=== PATIENT | male | born 1930 | race Caucasian/White ===

== ENCOUNTER 2016-08-06 22:31 | Inpatient (IN) | payer MEDICARE ==
[~2016-08-06] VITALS: Ht 182.9 cm; Wt 105.4 kg
[2016-08-06 22:38] VITALS: BP 153/70; PULSE 82; RESP 28; O2SAT 99
--- NOTE | 2016-08-06 22:42 | ED.REPORT ---
HPI-General Illness Date of Service Aug 06, 2016 ED Provider: Orlando Arce MD Patient is an 86 year old male with a history of hypertension, coronary artery disease, and congestive heart failure who presents to the ED with increasing redness and swelling of his right leg that began 2 days ago. The patient states that his leg started swelling more than usual several days ago, causing him to double his dose of furosemide and spironolactone. Tonight the patient complained to his daughter that his right big toe causing him pain. She noticed that his leg was swollen and red. His daughter states that the patient was scratched by her cat several days ago and she is concerned that this may have caused his infection. However, he also has an ingrown toenail of his right great toe. The patient was given 2x Ibuprofen prior to arrival. He developed nausea and vomiting just prior to arrival. He admits to decreased PO intake over the past few days but denies abdominal pain, fever, chest pain, or shortness of breath. He denies a history of diabetes mellitus. Nursing Notes Stated Complaint: VOMITING Chief Complaint: General Complaint Nursing Notes Reviewed: Yes Allergies: Coded Allergies: No Known Allergies (Unverified , 08/06/16) General Time Seen by MD: 22:36 Chief Complaint Other (extremity pain and swelling) Hx Obtained From: Patient Arrived By: Walk-in Sudden in Onset?: No Onset Occurred: 2 days ago Symptom Duration: Since onset Location: : Leg right Quality: Painful Severity: Current: Moderate Severity: Maximum: Severe Recent Healthcare: No recent doctor visit, No recent hospitalization Similar Sx Previous: No Past Medical History Past Medical History heart attack Reports: Congestive heart failure, Coronary artery disease, Hypertension, Denies: Diabetes mellitus Past Surgical History TKA Reports: Appendectomy, Tonsillectomy Reports: Back/neck surgery Smoking History Former Smoker Social History Alcohol Use: Denies alcohol use Other Social History: Good social support, Local resident Ambulatory Status Independent Review of Systems Full Review of Systems Constitutional: Denies: Chills, Fever Respiratory: Denies: Shortness of breath Cardiovascular: Denies: Chest pain GI: Reports: Nausea, Vomiting, Denies: Abdominal pain Musculoskeletal: Reports: Extremity pain, Extremity swelling Complete sys rev & neg: except as marked. Physical Exam Vital Signs Vital Signs Date Time Temp Pulse Resp B/P Pulse Ox O2 Delivery O2 Flow Rate FiO2 08/06/16 23:57 79 25 121/54 90 Room Air 08/06/16 22:38 37.5 82 28 153/70 99 Room Air Initial VS: Reviewed Skin: Warm, Dry, No cyanosis Neurologic: Alert, Oriented, Nonfocal Psychiatric: Mood/affect normal, Behavior normal, Normal thought content General/Constitutional: Awake, Alert Appearance / Presentation: Positive: Obese Head / Eyes: Normocephalic, PERRL, EOMI ENT: Airway patent Mouth: Positive: Mucous membranes dry Respiratory / Chest: Breath sounds NL, Breath sounds = bilat, No respiratory distress, No rales, No rhonchi, No wheezing Cardiovascular: Heart rate NL, Regular rhythm, Heart sounds NL, No gallop, No murmurs, No rubs Abdomen: Soft, Non-tender, No guarding, No rebound Upper Extremities Upper Extremity / MS: No swelling, No edema Lower Extremity / Pelvis / MS: No deformity Right leg is swollen and red, with pitting edema. Various old scars, with skin adherent to the underlayers. Ankle / Foot: No deformity Ingrown right toe nail, with necrotic tissue. Various black escobar on his right foot. Interpretation & Diagnostics Lab Results Interpretation Result Diagram: 08/06/16230108/06/162301 Test 08/06/16 23:02 White Blood Count 6.2th/mm3 (3.8-10.1) Red Blood Count 3.38mil/mm3 (4.40-5.80) Hemoglobin 10.7g/dL (13.8-17.2) Hematocrit 32.5% (41.0-50.0) Mean Corpuscular Volume 96.2fL (81-100) Mean Corpuscular Hemoglobin 31.7pg (27.0-35.0) Mean Corpuscular Hemoglobin Concent 32.9% (32.0-37.0) Red Cell Distribution Width 14.8% (12.3-15.4) Platelet Count 141bil/L (150-400) Neutrophils (%) (Auto) 88.6% (40-74) Lymphocytes (%) (Auto) 9.1% (14-46) Monocytes (%) (Auto) 1.6% (4-12) Eosinophils (%) (Auto) 0.7% (0-5) Basophils (%) (Auto) 0% (0-3) Erythrocyte Sedimentation Rate 19mm/hr (0-30) Prothrombin Time 18.1sec (8.1-12.5) Prothromb Time International Ratio 1.67ratio Activated Partial Thromboplast Time 30.4sec (22.8-33.0) Sodium Level 138mEq/L (134-144) Potassium Level 4.3mEq/L (3.5-5.2) Chloride Level 100mEq/L (97-108) Carbon Dioxide Level 22mmol/L (18-29) Blood Urea Nitrogen 33mg/dL (8-27) Creatinine 1.84mg/dL (0.76-1.27) Estimat Glomerular Filtration Rate 37mL/min (>59) Glucose Level 117mg/dL (60-99) Lactic Acid Level 1.7mmol/L (0.4-2.0) Calcium Level 9.9mg/dL (8.5-10.1) Phosphorus Level 3.3mg/dL (2.5-4.9) Magnesium Level 2.1mg/dL (1.6-2.6) Total Bilirubin 1.3mg/dL (0.0-1.2) Aspartate Amino Transf (AST/SGOT) 20U/L (0-50) Alanine Aminotransferase (ALT/SGPT) 11U/L (0-44) Alkaline Phosphatase 138U/L (25-160) Troponin T 0.055ug/L (0.0-0.011) Pro-B-Type Natriuretic Peptide 3664pg/mL (0-486) Total Protein 7.9g/dL (6.4-8.4) Albumin 4.1g/dL (3.4-5.0) Lipase 26U/L (13-60) Procalcitonin 0.07ng/mL (0.00-0.08) ECG Interpretation ECG Interpretation: Sinus rhythm, Rate 81 Right bundle branch block but no acute changes Time: 23:10 Interpreted by: ED physician X-Ray Chest Interpretation Chest Xray Interpretation: Impression: Cardiomegaly but no signs of CHF. View: Portable Interpretation / Wet Read by: Wet read ED physician Re-Eval/Medical Decision Med Decision/Clinical Course 6-year-old with peripheral edema and presumptive congestive heart failure, presents with increasing swelling in both legs and distinct redness in the right leg indicating cellulitis. He has no white count but differs between his legs is quite remarkable. He is been doubling his Lasix without much effect and still has fairly swollen tense tender legs. His incidental back pain being addressed with Dilaudid. He has no pain medicine at home. He has an incidental elevation of his troponin in the setting of azotemia. Age of this renal dysfunction is unclear, as we have no old records on him. The elevation of creatinine is probably not sufficient to explain the troponin elevation completely. He is admitted as a rule out protocol for trending of his troponin and evaluation of his heart further. Consider echo in the morning if this is not been accomplished elsewhere in the recent past. He was begun with soft tissue sepsis protocol drugs which are probably excessive. He was given meropenem, vancomycin, and clindamycin. This infection will probably respond ultimately clindamycin alone. Cultures of the blood are pending. Doubt MRSA. He is transported in stable condition. Time of Eval: 00:32 Re-Evaluation/Progress Note: Rechecked the patient. Discussed the results of his labs, chest x-ray, and EKG. Informed the patient that he will be admitted to the hospital for further care. Patient understands and agrees with this plan. All questions were addressed. Consultation : Referral / Consult Name: Thomas Nelson MD Consulted With: Hospitalist Call Returned at: 00:43 [employer] Department Chair: Will see patient, Agrees with eval, Agrees with plan, Accepts admit Note: Spoke with Dr. Nelson, hospitalist, who agrees to accept admit. Counseled Regarding: Diagnosis, Lab results, Need for admission Discharge & Departure Primary Impression: Cellulitis of right lower extremity Additional Impressions: CHF (congestive heart failure) Congestive heart failure type: unspecified congestive heart failure type Congestive heart failure chronicity: unspecified congestive heart failure chronicity Qualified Code: I50.9 - Heart failure, unspecified Elevated troponin Disposition: ADMITTED TO HOSPITAL Discharge Condition All VS Reviewed: Yes Condition: Stable Scribe Attestation Portions of this note were transcribed by Lana Norris. I, Dr. Arce personally performed the history, physical exam and medical decision-making; I reviewed and confirmed the accuracy of the information in the transcribed note. Signed by: Estefany Ho, 08/07/2016 0045 Orlando Arce MD Aug 06, 2016 22:42 Lana Norris Aug 06, 2016 22:53
[2016-08-06] MEDS ORDERED: Ondansetron 2 mg/mL 2 mL Inj IVPUSH ONE (22:50)
[2016-08-06] MEDS ORDERED: Clindamycin Inj 900 MG in IV Premix 1 EACH IV ONE (22:50)
[2016-08-06] MEDS ORDERED: Meropenem Inj 1,000 MG in 0.9% Sodium Chloride 100 ML IV ONE (22:50)
[2016-08-06] MEDS ORDERED: Vancomycin Dose per Pharmacist XX ONE (22:50)
[2016-08-06] MEDS ORDERED: 0.9% Sodium Chloride 1,000 ML IV ONE (22:50)
[2016-08-06] MEDS ORDERED: Vancomycin Inj 2,000 MG in 0.9% Sodium Chloride 500 ML IV ONE (23:05)
[2016-08-06] MEDS ORDERED: HYDROmorphone 0.5 mg/0.5 mL iSecure Syringe IVPUSH ONE (23:10)
[2016-08-06 23:37] LABS: BASOPHILS % (AUTO) 0 % (0-3); EOSINOPHILS % (AUTO) 0.7 % (0-5); MONOCYTES % (AUTO) 1.6 % (4-12); Mean Corpuscular Hemoglobin 31.7 pg (27.0-35.0); Mean Corpuscular Volume 96.2 fL (81-100); NEUTROPHILS % (AUTO) 88.6 % (40-74); Platelet Count 141 bil/L (150-400)
[2016-08-06 23:56] LABS: INR 1.67 ratio
[2016-08-06 23:57] VITALS: BP 121/54; PULSE 79; RESP 25; O2SAT 90
[2016-08-07] VITALS (11 sets, daily range): BP systolic 85–127; BP diastolic 49–70; PULSE 52–76; RESP 16–23; O2SAT 96–99
[2016-08-07 00:05] LABS: Magnesium 2.1 mg/dL (1.6-2.6); Phosphorus 3.3 mg/dL (2.5-4.9)
[2016-08-07 00:11] LABS: TROPONIN T 0.055 ug/L (0.0-0.011)
[2016-08-07 00:23] LABS: ERYTHROCYTE SEDIMENTATION RATE 19 mm/hr (0-30)
[2016-08-07] MEDS ORDERED: HYDROmorphone 0.5 mg/0.5 mL iSecure Syringe IVPUSH ONE (00:50)
[2016-08-07] MEDS ORDERED: 0.9% Sodium Chloride 1,000 ML IV SCH ×2 (01:20)
[2016-08-07] MEDS ORDERED: Alum-Mag Hydrox-Simeth 30 mL Suspension PO PRN ×2 (01:20)
[2016-08-07] MEDS ORDERED: Polyethylene Glycol (PEG) 17 Gm Powder PO PRN (01:20)
[2016-08-07] MEDS ORDERED: Ondansetron 2 mg/mL 2 mL Inj IVPUSH PRN ×2 (01:20)
--- NOTE | 2016-08-07 01:48 | PCM.HPMED ---
Subjective Date of Service Aug 07, 2016 Primary Provider: Admitting Physician: Thomas Nelson MD Primary Care Physician: Nopjh Attending Physician: Thomas Nelson MD Admit Status: From the Emergency Department, [facility] Telemetry Chief Complaint: Right leg pain and swelling History of Present Illness: Mr. Parrish Benitez is an 86 year old male with a history of chronic chronic afib on warfarin, hypertension, coronary artery disease, and congestive heart failure who presents to the ED with increasing redness and swelling of his right leg that began prior to arrival. The patient reports that his leg's swelling has been worse than usual several days ago, causing him to double his dose of furosemide and spironolactone. Tonight the patient complained to his daughter that his right big toe and foot are causing him pain. She noticed that his right leg was swollen and red. His daughter states that the patient was scratched by her cat a week ago and she is concerned that this may have caused his infection. However, he also has an ingrown toenail of his right great toe. She gave him a dose of Ibuprofen prior to arrival, which made him very nauseous and vomited once. He admits to increasing shortness of breath, worsening dry cough, chills, urinary frequency, and decreased PO intake over the past few days. He denies abdominal pain, fever, chest pain, or paroxysmal nocturnal dyspnea. He sleeps with one pillow everyday and does not need to use O2. He denies a history of diabetes mellitus and has never had similar symptoms in the past. His daughter reports the last time he was in the hospital was probably 7 years ago for a knee surgery. No recent cardiac workups, but he saw Dr. Taveras in 05/2016 and plans to have an event monitor done soon. In the ED, patient had temp of 37.5, pulse 82, RR 28, BP 153/70, Pulse ox 99% at RA. WBC normal but elevated Neutrophils of 88. CMP normal except for BUN 33 and Cr. 1.84. Lactic acid 1.7 and procalcitonin 0.07. Pro-BNP 3664 and elevated trop of 0.055. INR 1.67. EKG showed sinus rhythm with rate of 81 and RBBB but no acute changes. CXR indicated cardiomegaly but no other sign of CHF. Review of Systems: Comprehensive review of systems conducted and was negative except for the pertinent positives listed in history of present illness above. Allergies Coded Allergies: No Known Allergies (Unverified , 08/06/16) Home Medications Per Next Gen Medication Name Directions doxazosin 8 mg tablet take 1 tablet by oral route every day fluoxetine 20 mg capsule take 1 capsule by oral route 2 times every day in the morning furosemide 40 mg tablet take 3 tablet by oral route 2 times every day furosemide 40 mg tablet take 2 tablet by oral route every morning with spironolactone lisinopril 40 mg tablet take 1 tablet by oral route every day spironolactone 25 mg tablet take 2 tablet by oral route every morning trospium 20 mg tablet take 1 tablet by oral route every day on an empty stomach warfarin 2 mg tablet take 1 tablet by oral route every day PMH RI in 2004. No stent placement. Reports: Congestive heart failure, Coronary artery disease, Hypertension, Afib. Denies: Diabetes mellitus Surgical History Reports: TKA, Appendectomy, Tonsillectomy, back/neck surgery Family History Both parents had cardiovascular disease and heart attacks. Social History Hx Alcohol Use: No ("Quit a couple years ago." Drank occasionally prior to that.) Hx Substance Use: No Smoking Status: Former Smoker (quit 45 years ago) Living Arrangement: with Family (with daughter) Additional Information Patient's daughter reports slow/shuffling gait at baseline, but he is quite independent and uses a walker occasionally. PCP is Dr. Mackay at [facility]. Cardiology is Dr. Taveras. . Exam Vital Signs Vital Sign - Last Date Time Temp Pulse Resp B/P Pulse Ox O2 Delivery O2 Flow Rate FiO2 08/06/16 23:57 79 25 121/54 90 Room Air 08/06/16 22:38 37.5 Intake and Output 08/06/16 08/06/16 08/07/16 Cumulative From/Thru 15:00 23:00 07:00 08/06/16 22:38 - 08/06/16 23:11 Intake Total 1000 ml 1000 ml Balance 1000 ml 1000 ml Intake IV Total 1000 ml 1000 ml Exam General: somnolent but opens eyes easily to verbal. Oriented X3, Cooperative, No Acute Distress. Head: Atraumatic. External ears normal. Eyes: PERRLA, EOMI. Anicteric sclerae. Conjunctiva are not injected Mouth: Mouth Normal, Mucous Membranes Moist/[place] Neck: Neck supple with full range of motion. No Thyromegaly. Small JVD noted. Chest & Lungs: Clear to auscultation bilaterally with no crackles, wheezes, or rhonchi. Normal respiratory effort without use of accessory muscles Cardiovascular: Regular Rate/Rhythm (sinus on the monitor), Normal S1, Normal S2, No Murmurs/Rubs/Gallops. Abdomen: Obese, Soft, Non-distended, Non-tender, No masses, Normoactive bowel tones. Left leg: mild pitting edema and brawny discoloration consistent with venous insufficiency. Otherwise normal exam. Right leg: moderate pitting edema from about 5 cm below the knee down to the foot with pedal edema. Erythema and warmth to touch in the same area. Tenderness to palpation throughout, especially in the right big toe. Ingrown right big toe nail, with necrotic tissue. No open lesion or wound noted. Neurological: Grossly Neurologically Intact, Cranial Nerves 2-12 Intact, Normal Speech (no slurring appreciated), Gait was not assessed at this time Psych: Normal mood and affect. Lab and Diagnostics Result Diagram: 08/06/16230108/06/162301 12-lead ECG Sinus rhythm, Rate 81 Right bundle branch block but no acute changes Cardiac Echo Impressions Per Next Gen: Echo (EF 0.55 (55%)) - 01/25/2016 Echo (EF 0.58 (58%)) - 07/2015 Gil MPI (Normal EF, Inferior Scar vs Gut Artifact) - 01/25/2016 Assessment & Plan 86 year old male with a history of chronic chronic afib on warfarin, hypertension, coronary artery disease, and congestive heart failure who presents to the ED with increasing redness and swelling of his right leg that began prior to arrival. 1. Acute cellulitis of the right lower extremity. Present on admission. Active. - Patient does not meet SIRS/Sepsis criteria. Normal lactic acid (1.7) and procalcitonin (0.07). Will continue to trend lactic acid. - Concerning about superimposed cat scratch disease and acute ingrown toenail of the big toe. - Patient received Meropenem+Vanco+Clindamycin in the ED. - Blood culture pending. - Given his elevated renal function, will start empiric treatment with Unasyn ( instead of Zosyn) and Doxycycline (for cat scratch disease and MRSA coverage). Unasyn dosing was discussed with pharmacy, who recommended 3g Q8H for his CrCl. - Consider ID consult for antibiotic guidances and duration of treatment. - Patient will likely need an incision and drainage of the right big toenail. - Judicious use of IVF given possible CHF exacerbation. IVF with NS at 80mls/ hr. - Continue to monitor vital signs. 2. Possible diastolic congestive heart failure exacerbation, acute. Present on admission. Active. - Patient reports increasing LE edema, SOB, and dry cough. No sputum production. Small JVD noted on exam. - Pro-BNP of 3664. - Last Echo was in 01/2016 per record. There is diastolic dysfunction with elevated filling pressure and the left atrium is severely dilated. EF 55%. There is moderate pulmonary hypertension, PASP 54mmHg. - Repeat Echo in the morning. - Will start Lasix 40mg IV BID in the morning. - Will need to monitor strict I/O and daily weight. - Resume home Spironolactone after med rec. Consider switching home Lisinopril to Losartan given chronic dry cough. 3. Elevated Tropnonin. Present on admission. Active. - Likely due to elevated renal function. - Normal EKG on admission. Monitor Telemetry. - Will continue to trend Trop and order EKG if pt becomes symptomatic. 4. Acute kidney injury. Present on admission. Active. - Unknown if there was history of chronic kidney dysfunction. No prior labs for comparison. - IVF as above. Consider D/C IVF once kidney function improves. - Avoid nephrotoxic drugs. - Continue to monitor renal function. 5. Chronic atrial fibrillation on chronic anticoagulation. Stable. - Normal sinus rhythm and rate on admission. - INR is subtherapeutic (1.67). Continue to monitor INR. - Patient was on Metoprolol before, but it was discontinued due to significant bradycardia. - Will continue Warfarin. Dosing per pharmacy. - Monitor Telemetry. - Follow up with cardiology as outpatient for Event Monitor. 6. Hypertension, chronic, stable. - Resume home Spironolactone and ACEi/ARBs after med rec - Continue to monitor. 7. History of CAD, presume stable. - Patient is not on ASA or statin. - Check lipid panel in the morning and consider adding a statin. 8. Chronic urinary retention, presume stable. - Will resume home Doxazosin after med rec. 9. Depression, chronic. - Resume home Fluoxetine after med rec. 10. Medication reconciliation. - Patient's daughter will bring in all his medications tomorrow. Med rec needs to be done by day team. CODE STATUS: DNR/DNI per the patient. - Acetaminophen and Dilaudid as needed for pain - Bowel regimen as needed - Antiemetic as needed Patient is admitted under inpatient status with expected length of stay greater than 2 midnights due to severity of presenting symptoms, risk of adverse event, and complexity of treatment plan. Pain Evaluation: Adequate Pain Control GI Prophylaxis: H2 luan VTE Prophylaxis: Theraputic Anticoag with Warfarin Resuscitation Status: DNR/DNI:Do Not Resuscitate/Intubate Attending Statement The patient was seen and examined together with Dr. Leblanc on 08/07 and I agree with the history, exam and plan as outlined in the note above. copies to: Douglas Taveras MD; Lina Mackay MD, Ngochanh H DO Aug 07, 2016 01:48 Thomas Nelson MD Aug 07, 2016 02:37
[2016-08-07] MEDS: HYDROmorphone 0.5 mg/0.5 mL iSecure Syringe IVPUSH PRN (01:49)
[2016-08-07 02:19] LABS: APPEARANCE,URINE CLEAR (CLEAR,HAZY); COLOR,URINE YELLOW (YELLOW)
[2016-08-07 02:20] LABS: OCCULT BLOOD,URINE NEGATIVE (NEGATIVE); UROBILINOGEN,URINE NORMAL (NORMAL)
--- NOTE | 2016-08-07 02:41 | NUR ---
admit note: pt. admitted for right leg cellulitis, bilat lower extremity edema, sob, CHF. pt. currently denies chest pain or sob, pt. does c/o lower back pain.
[2016-08-07 03:25] LABS: BASOPHILS % (AUTO) 0 % (0-3); EOSINOPHILS % (AUTO) 0.2 % (0-5); MONOCYTES % (AUTO) 4.9 % (4-12); Mean Corpuscular Volume 97.1 fL (81-100); NEUTROPHILS % (AUTO) 92.2 % (40-74); Platelet Count 120 bil/L (150-400)
[2016-08-07 03:44] LABS: INR 1.89 ratio
[2016-08-07 04:40] LABS: Magnesium 1.9 mg/dL (1.6-2.6)
[2016-08-07 04:41] LABS: TROPONIN T 0.057 ug/L (0.0-0.011)
[2016-08-07] MEDS ORDERED: SPIR50TA2 PO (07:45)
[2016-08-07] MEDS ORDERED: CAR8A PO (07:45)
[2016-08-07] MEDS ORDERED: LISI40TA PO (07:45)
[2016-08-07] MEDS ORDERED: FURO80TA83 PO (07:45)
[2016-08-07] MEDS ORDERED: FLUO40CA PO (07:45)
[2016-08-07] MEDS ORDERED: WARF2TAB7 PO (07:45)
[2016-08-07] MEDS ORDERED: TROS20TA4 PO (07:45)
[2016-08-07] MEDS ORDERED: Doxycycline Inj 100 MG in Dextrose 5% Minibag Plus 100 ML IV SCH (08:30)
--- NOTE | 2016-08-07 08:40 | DRSVH ---
PROCEDURE: X-RAY CHEST ONE VIEW, PORTABLE ([id number]) INDICATIONS: cellulitis, nausea TECHNIQUE: One view of the chest was acquired. COMPARISON: None. FINDINGS: Surgical changes and devices: None. Lungs and pleura: No pleural effusions or pneumothorax. Lungs are clear. Mediastinum: Mediastinal contours appear normal. Heart size is normal. Bones and chest wall: No suspicious bony lesions. Overlying soft tissues appear unremarkable. IMPRESSION: No definite acute cardiopulmonary disease. Dictated by: Rainer Nj [facility] Interpreted: Geri Mcbride MD on 08/07/2016 at 8:40 Transcribed by: CYNTHIA on 08/07/2016 at 8:40 Approved by: Geri Mcbride MD, PhD on 08/07/2016 at 18:03
[2016-08-07] MEDS: Furosemide 10 mg/mL 4 mL Inj IVPUSH SCH ×2 (09:29→20:30)
[2016-08-07] MEDS: Ampicillin-Sulbactam Inj 3,000 MG in 0.9% Sodium Chloride 100 ML IV SCH ×2 (09:29→17:27)
--- NOTE | 2016-08-07 12:51 | NUR ---
pain/activity pt noting moderate lower back pain. repositioning unsuccessful. pt assisted up to chair, 1pa with fww for increased comfort. pt stated pain improved. pt up in chair eating lunch.
--- NOTE | 2016-08-07 13:49 | DRSVH ---
PROCEDURE: X-RAY RIGHT FOOT COMPLETE, MINIMUM THREE VIEWS ([id number]) INDICATIONS: cellulitis, osteomyelitis? TECHNIQUE: views of the foot were acquired. COMPARISON: None. FINDINGS: Bones: No fractures or dislocations. No suspicious bony lesions. Bones are osteopenic. There is c ortical irregularity and lucency involving the head of the first metatarsal bone along the medial and lateral surfaces. First MTP and diffuse interphalangeal joint narrowing with periarticular osteophy te formation. Mild degenerative change within the midfoot. Soft tissues: No tibiotalar joint effusion. Achilles tendon appears normal. Mild soft tissue swell ing adjacent to the first metatarsal head. Vascular calcifications indicate atherosclerosis. IMPRESSION: 1. Diffuse osteopenia and bony osteolysis involving the first metatarsal head suspicious for osteomye litis. 2. Osteoarthritic changes. Dictated by: Rainer BAUTISTA Interpreted: Meena Turner MD on 08/07/2016 at 13:46 Transcribed by: NORIS on 08/07/2016 at 13:48 Approved by: Meena Turner M.D. on 08/08/2016 at 10:38
--- NOTE | 2016-08-07 14:17 | CONS ---
[address] [address] CONSULTATION REPORT PATIENT: ANUPAM GREGORY : 1930 MR#: [id number] ADMIT: 08/07/2016 JOB ID: [id number] DATE OF SERVICE: 08/07/2016 INFECTIOUS DISEASE CONSULTATION: I thank Dr. Espino for this timely consult. REASON FOR CONSULT: Right lower extremity cellulitis following a cat bite. 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 Unfortunately an unfriendly interaction with his daughter's cat led to a bite and scratch on his right foot about a week ago. Following this bite scratch event with a cat, his right foot swelled up rapidly and he became quite concerned. It did seem to improve for a bit before worsening again leading him to seek evaluation and admission through the ED yesterday evening. The patient notes he has some chronic lower extremity swelling and he has been taking diuretics because of this but the right leg which was bitten and scratched by the cat, has not improved. The patient has been trying to treat himself with Motrin at home but this has not been terribly effective and he has developed fatigue, nausea and even vomiting in the day prior to admission. He notes he has anorexia, of course, but he denies abdominal pain, any kind of fevers, chills or sweats in association with this apparent cat bite related process. At this point, the patient has been in the hospital just since last night and is already starting to feel a bit better. Today, he has no fevers, chills or sweats. No cough, shortness of breath and his GI symptoms are resolving. PAST MEDICAL HISTORY: 1. Hypertension. 2. Organic heart disease: a. Coronary artery disease. b. Afib. c. CHF. d. Chronic anticoagulation. 3. Bilateral total knees. 4. Unilateral left total hip replacement. 5. Mild chronic renal insufficiency. SOCIAL HISTORY: The patient is an ex drinker, ex-smoker. He quit smoking a couple decades ago and drinking a couple years ago. He was born and raised in [place] in [place] and then came to [facility] and now is living with his daughter in [place]. There is no family history of TB in his first-degree relatives. REVIEW OF SYSTEMS: Was done in detail. The patient late this morning tells us he has no fevers, chills or sweats. He is having no headache, acute visual change, sore throat or trouble swallowing. No cough, shortness of breath, chest pain. His anorexia, nausea and vomiting seem to be improving. No abdominal pain. No dysuria. He has some pain in his right foot but it is fairly minimal and likewise the swelling and redness in his right foot seemed to be improving. The remainder of the review of systems was negative. PHYSICAL EXAMINATION: Reveals an afebrile gentleman, temperature 36.4, pulse 54, blood pressure 90/53. Respiratory rate in the teens. He is saturating well on 3 L. The patient is awake, alert and oriented. His head is without trauma or temporal wasting. Eyes without conjunctivitis or scleral icterus. Oral cavity without thrush or pharyngitis. Neck: Supple without adenopathy. Lungs reasonably clear. Cardiac examination: Regular rate and rhythm without significant murmur. The abdomen is slightly obese, soft, and nontender without organomegaly or ascites. No Brown catheter is present. No cervical or inguinal adenopathy is noted. The patient has venous stasis changes both lower extremities. There is about 2+ edema around the left foot and ankle and 3+ on the right. The right foot and ankle have diffuse mild erythema but this is neither warm and surprisingly not tender either. There is no obvious skin breakdown. We do see the puncture wounds left by the cat on the right foot but these appear grossly uninfected as well. The erythema extends a bit up the calf but is fairly minimal and diffuse. He has good strength and sensation in his lower extremities. Recall that this is a patient who does not have diabetes. No skin rashes noted except for that erythema around the right foot and ankle. No thyromegaly. Labs include white count 5000 with 90% segs. His creatinine is 1.8. His LFTs normal except for bilirubin 1.4. Troponins modestly positive. Cholesterol low at 92 interestingly. Procalcitonin 0, lipase 26. Urinalysis: 0-5 white cells. Two blood cultures from last night are pending. Chest x-ray has been done which shows no pulmonary infiltrates. IMPRESSION: This patient sustained a cat bite and scratch to his chronically edematous right foot about a week ago. It initially seemed to become intensely red and swollen and then actually came down a bit with increased diuretics and Motrin only to get worse again and lead him to the ED last night where he was admitted. The story is most consistent with Pasteurella infection which is typically very rapid and severe in onset and I suspect that is what happened last week. Now he has more of just a diffuse cellulitic component and I think this likely represents Staph or strep superinfection though the possibility that there is still some Pasteurella cannot be ruled out. He does not look toxic and he does not need the nec fasc regimen that was initially prescribed. RECOMMENDATIONS: 1. Oral doxycycline plus IV Unasyn is reasonable. 2. Will check the nose for MRSA. 3. Will check ASO titer. 4. Ultrasound of right lower extremity. 5. Plain film of the right foot and ankle to rule out obvious osteo though I think it is unlikely. Thank you very much for this consult.
--- NOTE | 2016-08-07 14:56 | NUR ---
Evaluation completed. Please go to "Notes" then click on "Assessments and Notes" (bottom left corner of screen). Then select appropriate discipline tab on top of screen.
--- NOTE | 2016-08-07 15:35 | NUR ---
Activity report from community service representative and charge nurse, noted increased assistance needed for transferring patient, and helping patient to standing position. MD informed, PT eval pending. care continues with a 2pa with F[facility] for transfers.
--- NOTE | 2016-08-07 16:32 | DRSVH ---
PROCEDURE: US VEINOUS LEG DUPLEX UNILATERAL, RIGHT INDICATIONS: Unilat leg swelling, DVT? TECHNIQUE: Real-time imaging, as well as color and pulse Doppler interrogation, were performed of the lower extr emity deep veins from the inguinal ligament to the popliteal fossa. COMPARISON: None. FINDINGS: The deep veins are normally compressible, and free of intraluminal thrombus. Color and pu lse Doppler demonstrate normal phasic intraluminal flow. There is normal augmentation response to di stal compression maneuver. IMPRESSION: No deep venous thrombosis identified within the right lower extremity. Dictated by: Rainer BAUTISTA Interpreted: Meena Turner MD on 08/07/2016 at 16:32 Transcribed by: NORIS on 08/07/2016 at 16:32 Approved by: Meena Turner M.D. on 08/08/2016 at 10:43
[2016-08-07] MEDS ORDERED: OMEP20CA11 PO (17:04)
[2016-08-07] MEDS ORDERED: FURO40TA4 PO (17:05)
--- NOTE | 2016-08-07 17:44 | DRSVH ---
[facility] [address] [place] [address] Echocardiogram Report Name: ANUPAM GREGORY FStudy Eric e: 08/07/2016 Height: 72 in Hospital Exam Location: [facility] Weight: 234 lb Gender: Male BSA: 2.3 m2 : 1930 Age: 86 yrs BP: 96/51 mmHg Reason For Study: Congestive Heart Failure Ordering Physician: HOSPITALIST [facility] Performed By: Elmo Handy Referring Physician: PARIS HAINES Interpretation Summary 1) Mild-moderate concentric left ventricular hypertrophy with normal size, normal wall motion, and normal systolic function (EF 60-65%). 2) Mild to moderately dilated right ventricle with moderately reduced function. 3) Severe right atrial enlargement with inter-atrial septum bowing to the left, suggestive of volume overload. 4) Severe functional tricuspid regurgitation present. 5) Elevated right sided filling pressures based on IVC assessment. 6) High normal pulmonary artery pressures, estimated systolic pulmonary pressure of 34mmHg. 7) No prior echo available for comparison. Findings consistent with right ventricular heart failure. Procedure: A two-dimensional transthoracic echocardiogram with color flow and Doppler was performed. The study quality was technically adequate. There is no prior echocardiogram noted for this patient. The patient was in sinus bradycardia with heart rates between 53-58 bpm during the exam. Left Ventricle: The left ventricular cavity is small. There is mild- moderate concentric left ventricular hypertrophy. The ejection fraction is estimated to be 60-65%. Left ventricular wall motion is normal. Assessment of diastolic parameters indicates a restrictive filling pattern of the left ventricle consistent with significantly elevated filling pressures. Right Ventricle: The right ventricle is mild to moderately dilated. Right ventricular systolic function is moderately reduced. Atria: The left atrium is moderately dilated. The right atrium is severely dilated. Injection of contrast documented no interatrial shunt. The interatrial septum bows toward left atrium consistent with elevated right atrial pressure. Mitral Valve: The mitral valve leaflets appear mildly thickened, but open well. There is mild mitral regurgitation. Aortic Valve: The aortic valve is trileaflet. The aortic valve opens well. There is no aortic valve stenosis. No aortic regurgitation is present. Tricuspid Valve: The tricuspid valve is not well visualized, but is grossly normal. There is severe tricuspid regurgitation. The right ventricular systolic pressure is estimated at 34 mmHg assuming a right atrial pressure of 15 mm Hg. Pulmonic Valve: The pulmonic valve is not well visualized. There is a trace or physiologic amount of pulmonic regurgitation. Great Vessels: The aortic root is normal size. The ascending aorta is at the upper limits of normal in size. The pulmonary artery is not well visualized, but is probably normal size. The IVC is dilated (diameter is greater than 2.1 cm) and it collapses less than 50% with a sniff. This suggests a high right atrial pressure of 15 mm Hg. Pericardium/ Pleura There is no pericardial effusion. There is a moderately large left-sided pleural effusion. MMode/2D Measurements & Calculations LVIDd: 4.0 cm RA long axis LVOT diam LVIDs: 3.0 cm LA A2 area: 27.8 cm FS: 25.6 % LA A4 area: 29.5 cm RA area AoV Opening EPSS: 0.39 cm LA length (vol): 6.5 cm IVSd: 1.5 cm LA vol: 107.1 ml : 32.4 cm Ao root diam LVPWd: 1.2 cm LA vol index RA vol : 135.ml asc Aorta RA Diam: 3.8 cm IVC diam: 3.0 cm : 59.4 mm2 LV dent. diameter/BSA LV sys. diameter/BSA RVD1 (basal) RVD2 (mid) (cm/m^2): 1.8 (cm/m^2): 1.3 : 4.1 cm TAPSE: 1.1 cm Doppler Measurements & Calculations Ao V2 max MV E max chang MV E/A: 3.2 TR max chang : 150.1 cm/sec : 74.5 cm/sec Med Peak E' Chang : 216.6 cm/sec Ao max PG MV A max chang TR max P.8 mmHg : 9.0 mmHg : 23.4 cm/sec E/E' med: 14.7 Ao mean PG MVA(VTI): 2.6 cm2 Lat Peak E' Chang LVOT Max Chang E/E' lat: 17.7 : 89.2 cm/sec E/e' average DHIRAJ(I,D): 2.6 cm sev ratio MV V2 mean Ao V2 mean LV V1 max PG DHIRAJ indexed to BSA : 42.9 cm/sec : 107.5 cm/sec (cm^2/m^2): 1.1 MV mean PG Ao V2 VTI: 29.4 cmLV V1 VTI : 0.85 mmHg : 20.7 cm MV V2 VTI: 29.1 cmAVA(V,D): 2.2 cm2 MV dec time : 0.19 sec Reading Physician:05:43 PM
--- NOTE | 2016-08-07 19:30 | PCM.PNMED ---
Subjective Date of Service Aug 07, 2016 Subjective Patient states he did well overnight, no new complaints, no chest pain, shortness of breath, lightheadedness, dizziness, no dysuria. Exam Vital Signs Vital Sign - Last Date Time Temp Pulse Resp B/P Pulse Ox O2 Delivery O2 Flow Rate FiO2 08/07/16 17:21 Supplement Oxygen 08/07/16 17:18 36.9 58 16 91/49 97 3.00 Intake and Output 08/06/16 08/06/16 08/07/16 Cumulative From/Thru 15:00 23:00 07:00 08/06/16 22:38 - 08/07/16 06:49 Intake Total 2184 ml 2184 ml Output Total 100 ml 100 ml Balance 2084 ml 2084 ml Intake Oral 200 ml 200 ml IV Total 1984 ml 1984 ml Output Urine Total 100 ml 100 ml # Voids 1 1 Exam General: somnolent but opens eyes easily to verbal. Oriented X3, Cooperative, No Acute Distress. Head: Atraumatic. External ears normal. Eyes: PERRLA, EOMI. Anicteric sclerae. Conjunctiva are not injected Mouth: Mouth Normal, Mucous Membranes Moist/[place] Neck: Neck supple with full range of motion. No Thyromegaly. Small JVD noted. Chest & Lungs: Clear to auscultation bilaterally with no crackles, wheezes, or rhonchi. Normal respiratory effort without use of accessory muscles Cardiovascular: Regular Rate/Rhythm (sinus on the monitor), Normal S1, Normal S2, No Murmurs/Rubs/Gallops. Abdomen: Obese, Soft, Non-distended, Non-tender, No masses, Normoactive bowel tones. Left leg: mild pitting edema and purple discoloration consistent with venous insufficiency. Otherwise normal exam. Right leg: moderate pitting edema from about 5 cm below the knee down to the foot with pedal edema. Erythema and warmth to touch in the same area. Tenderness to palpation throughout, especially in the right big toe. Ingrown right big toe nail, with dried blood. no ulcers or weeping appreciated. Neurological: Grossly Neurologically Intact, Cranial Nerves 2-12 Intact, Normal Speech (no slurring appreciated), Gait was not assessed at this time Psych: Normal mood and affect. Lab and Diagnostics Result Diagram: 3/27/17 0315 3/27/17 0315 X-Rays, CTs and MRIs Venous duplex ultrasound right lower extremity performed 08/07/2016 IMPRESSION: No deep venous thrombosis identified within the right lower extremity. Dictated by: Rainer BAUTISTA Interpreted: Meena Turner MD on 08/07/2016 at 16: 32 X-ray right foot complete, 3 views, performed 08/07/16 IMPRESSION: 1. Diffuse osteopenia and bony osteolysis involving the first metatarsal head suspicious for osteomyelitis. 2. Osteoarthritic changes. Dictated by: Rainer BAUTISTA Interpreted: Meena Turner MD on 08/07/2016 at 13: 46 12-lead ECG Sinus rhythm, Rate 81 Right bundle branch block but no acute changes Cardiac Echo Impressions Per Next Gen: Echo (EF 0.55 (55%)) - 01/25/2016 Echo (EF 0.58 (58%)) - 07/2015 Gil MPI (Normal EF, Inferior Scar vs Gut Artifact) - 01/25/2016 Complete echocardiogram performed on 08/07/2016 Interpretation Summary 1) Mild-moderate concentric left ventricular hypertrophy with normal size, normal wall motion, and normal systolic function (EF 60-65%). 2) Mild to moderately dilated right ventricle with moderately reduced function. 3) Severe right atrial enlargement with inter-atrial septum bowing to the left, suggestive of volume overload. 4) Severe functional tricuspid regurgitation present. 5) Elevated right sided filling pressures based on IVC assessment. 6) High normal pulmonary artery pressures, estimated systolic pulmonary pressure of 34mmHg. 7) No prior echo available for comparison. Findings consistent with right ventricular heart failure. Assessment & Plan 86 year old male with a history of chronic chronic afib on warfarin, hypertension, coronary artery disease, and congestive heart failure who presents to the ED with increasing redness and swelling of his right leg that began prior to arrival. hospital day 1 1. Acute cellulitis of the right lower extremity. Present on admission. Active. - Patient does not meet SIRS/Sepsis criteria. Normal lactic acid (1.7) and procalcitonin (0.07). Will continue to trend lactic acid. - Concerning about superimposed cat scratch disease and acute ingrown toenail of the big toe. - Patient received Meropenem+Vanco+Clindamycin in the ED. - Blood culture positive for gram-negative rods 2. - Infectious diseases consultation: Oral doxycycline plus IV Unasyn. day 1. MRSA screen negative, ASO titer pending, ultrasound right lower extremity negative for DVT Plain film of right foot shows arthritis and suspicious for osteomyelitis. - Blood pressure has gone into the 90's. Asymptomatic MVP preserved. 2. Possible diastolic congestive heart failure exacerbation, acute. Present on admission. Active. - Patient reports increasing LE edema, SOB, and dry cough. No sputum production. Small JVD noted on exam. - Pro-BNP of 3664. - Complete echo: Findings consistent with right ventricular heart failure, severe functional tricuspid regurgitation. - Holding Lasix tonight given low blood pressure. - Will need to monitor strict I/O and daily weight. - Nurse reports only a little over 300 mL voided throughout the day, possibly secondary to decreased kidney function. - Resume home Spironolactone tomorrow AM - Consider switching home Lisinopril to Losartan given chronic dry cough. 3. Elevated Tropnonin. Present on admission. Active. - Likely due to elevated renal function. - Normal EKG on admission. Monitor Telemetry. - Will continue to trend Trop and order EKG if pt becomes symptomatic. 4. Acute kidney injury. Present on admission. Active. - Unknown if there was history of chronic kidney dysfunction. No prior labs for comparison. - IVF as above. Consider D/C IVF once kidney function improves. - Avoid nephrotoxic drugs. - Continue to monitor renal function. 5. Chronic atrial fibrillation on chronic anticoagulation. Stable. - Normal sinus rhythm and rate on admission. - INR is subtherapeutic (1.67). Continue to monitor INR. - Patient was on Metoprolol before, but it was discontinued due to significant bradycardia. - Will continue Warfarin. Dosing per pharmacy. - Monitor Telemetry. - Follow up with cardiology as outpatient for Event Monitor. 6. Hypertension, chronic, stable. - Resume home Spironolactone. Holding Lisinopril at this time. - Continue to monitor. 7. History of CAD, presume stable. - Patient is not on ASA or statin. - Lipid panel was unremarkable. 8. Chronic urinary retention, presume stable. - Will resume home Doxazosin after med rec. 9. Depression, chronic. - Resume home Fluoxetine after med rec. CODE STATUS: DNR/DNI per the patient. - Acetaminophen and Dilaudid as needed for pain - Bowel regimen as needed - Antiemetic as needed Disposition: Patient likely to continue to require IV antibiotics 3-4 more days due to severity of disease and specialist consultation. Likely discharge home if no complications. Pain Evaluation: Adequate Pain Control GI Prophylaxis: H2 luan VTE Prophylaxis: Theraputic Anticoag with Warfarin Resuscitation Status: DNR/DNI:Do Not Resuscitate/Intubate Attending Statement The patient was seen and examined together with Dr. Rivers on 08/07/2016 and I agree with the history, exam and plan as outlined in the note above. . Tyrese Rivers DO Aug 07, 2016 19:30 El Espino MD Aug 11, 2016 08:41
[2016-08-08] VITALS (10 sets, daily range): BP systolic 78–122; BP diastolic 36–69; PULSE 58–75; RESP 16–22; O2SAT 94–98
[2016-08-08] MEDS: Ampicillin-Sulbactam Inj 3,000 MG in 0.9% Sodium Chloride 100 ML IV SCH ×3 (00:30→21:20)
--- NOTE | 2016-08-08 01:15 | NUR ---
restless pt c/o having a hard time falling asleep he denies any pain just says he is comfortable in the bed, gave pt PO tylenol and he wanted to sit in his chair for a bit, after a while pt stating he thinks he will be able to sleep, pt back in bed resting.
[2016-08-08 03:21] LABS: BASOPHILS % (AUTO) 0 % (0-3); EOSINOPHILS % (AUTO) 0 % (0-5); Mean Corpuscular Hemoglobin 31.6 pg (27.0-35.0); Mean Corpuscular Volume 96.1 fL (81-100)
[2016-08-08 03:47] LABS: INR 2.66 ratio
[2016-08-08 03:53] LABS: MONOCYTES % (AUTO) 4 % (4-12); NEUTROPHILS % (AUTO) 85 % (40-74); Platelet Count 80 bil/L (150-400)
[2016-08-08 04:34] LABS: TROPONIN T 0.063 ug/L (0.0-0.011)
--- NOTE | 2016-08-08 05:06 | NUR ---
trop pts trop elevated this morning from yesterday morning 0.063 called MD received order to obtain a EKG,
[2016-08-08] MEDS: Pantoprazole 40 mg ER24 Tablet PO SCH (06:23)
[2016-08-08] MEDS ORDERED: 0.9% Sodium Chloride 500 ML IV ONE (07:40)
[2016-08-08] MEDS: Furosemide 10 mg/mL 4 mL Inj IVPUSH SCH ×2 (07:57→21:19)
--- NOTE | 2016-08-08 10:19 | PROG NOTE ---
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 INTERVAL HISTORY: Overnight, the patient is worse. He reports he is feeling just diffusely worse though he denies fevers or chills. He does report he is more short of breath and in general just does not feel as well. The nurses have noted periods of transient hypotension during the night and the patient's respiratory rate has clearly worsened overnight. As noted he denies fevers, chills or cough but notes he is more short of breath. No nausea, vomiting or diarrhea. He thinks that the erythema and tenderness in his right leg is actually improved somewhat overnight, however. PHYSICAL EXAMINATION: Reveals an afebrile gentleman, temperature 36.3, pulse 62, respiratory rate 18, blood pressure 95/57. He is saturating reasonably well on room air, but he actually appears looking at him to be short of breath. His mental status is still clear. His oral cavity without thrush or hairy leukoplakia. His neck is reasonably supple. His lungs are clear to auscultation. Cardiac tones with 1/6 murmur. His abdomen is slightly distended, but without organomegaly. No Brown catheter is present. His right lower extremity cellulitis which involves primarily the foot and ankle is perhaps slightly better than yesterday but really not much changed. Neurologically he is intact. Note that during the night his blood pressures were as low was 78/38 at 8 a.m. and at 3 a.m. 88/36. This morning he is 95/57. LABORATORIES: Include a white count of 9400, still with left shift. His creatinine is 2.52. His procalcitonin has risen to 18 from 0 yesterday. Liver function tests are normal. Urinalysis without white cells. Micro studies now positive 4/4 bottles for a small gram-negative fuentes, which appears to be a Pasteurella species. IMAGING: Of the foot suggests possible osteo at the 1st metatarsal head. The venous ultrasound is negative for DVT in that right lower extremity. Chest x-ray clear. The echocardiogram was done. It does not show evidence of valvular disease but there is evidence for right heart failure. IMPRESSION: As we were concerned about yesterday, this patient has proven to have a Pasteurella infection. This is a high-grade bacteremia and is certainly a life-threatening infection given his periods of hypotension during the night. At this point his creatinine is rising along with an extremely high procalcitonin and periods of hypotension and I think this patient could reasonably be diagnosed with Pasteurella septic shock. The Pasteurella can cause metastatic foci of infection including osteo, endocarditis, meningitis or pneumonia. At this point, I see no evidence for pneumonia or meningitis and our echo does not show much consistent with endocarditis but osteo is certainly possible based on the x-ray we have. RECOMMENDATIONS: 1. Will continue with Unasyn which he has been receiving which is the optimal drug in this circumstance. 2. The Unasyn will need to be renally adjusted as his creatinine changes. 3. Repeat blood cultures will be ordered today. If additional blood cultures are positive for Pasteurella, he will need a SERVANDO. 4. We will need a MRI scan of his foot at some point, but this is not urgent as first we need to improve his overall situation. Finding out whether or not he has osteo by MRI scan or even bone biopsy would be helpful in determining the intensity and duration of his therapy but not what we are going to do today or tomorrow. 5. This was all discussed in detail with the patient. 6. I am asking the nurses to do vital signs every 2 hours on this patient. Should his blood pressures continue to dip below 90, he might reasonably be transferred to the CCU.
--- NOTE | 2016-08-08 12:49 | NUR ---
Evaluation completed. Please go to "Notes" then click on "Assessments and Notes" (bottom left corner of screen). Then select appropriate discipline tab on top of screen.
--- NOTE | 2016-08-08 13:31 | NUR ---
Social Work: Initial Assessment Data: Pt is an 86 y/o male admitted for cellulitis, CHF, elevated troponin. Pt's PCP is not listed. Pt's insurance is [employer]. EMR reviewed. Readmit score is 3. COMPUTATIONAL CHEMIST met with pt at bedside, role explained. Pt states that he lives in [place] with his daughter and her family in a split level home where he uses no DME, pt states he uses a walker when out and about. Pt states he does not drive, has no HH or SNF hx, pt is connected with [place], has no LTC insurance. Pt requested to speak with [facility] regarding Medicaid as his had Medicaid when she was alive and he is interested to see if he might qualify. COMPUTATIONAL CHEMIST called [facility] and requested they meet with pt. PT recommending SNF at this time. SNF choice list given. Pt requests referrals to [facility] and [facility], no preference stated at this time. UR specialist notified and is referring pt to SNFs. COMPUTATIONAL CHEMIST will continue to follow. Assessment: Pt who is independent at baseline. Plan: Pt will d/c likely to SNF when medically stable, [facility] and [facility] referred. COMPUTATIONAL CHEMIST will continue to follow. MARY ELLEN Zaragoza Addendum: 08/08/16 at 1338 by FRIEDA STILL Amended: Links added.
--- NOTE | 2016-08-08 13:37 | PCM.PHAPRO ---
Progress Date of Service: Aug 08, 2016 INR = 2.66, hct = 29.5, plts = 80. Patient continues on warfarin therapy for afib goal INR 2-3. Since INR has greatly increased from 1.89 yesterday to 2.66 today after one dose of 1mg warfarin, will hold dose tonight. INRs are ordered. Pharmacy will continue to follow this patient's warfarin therapy. Date Aug 07-Aug 08-Jul INR 1.67 1.89 2.66 INR change 0.22 0.77 Warf Dose UNK 1 HOLD Vicky Chinchilla S PharmD Aug 08, 2016 13:37
--- NOTE | 2016-08-08 14:13 | NUR ---
Gave access and faxed facesheet to [facility] and [facility] per MEDICINE AND HEALTH SERVICE MANAGER and patient has no preference at this time.
--- NOTE | 2016-08-08 18:03 | NUR ---
Hypotension Patient hypotensive this AM, BP 78/38. Patient asymptomatic. 500 ml fluid bolus given. Patient responded well to fluid, systolic BPs in the 90s-100s. No c/o chest pain/SOB/dizziness. Patient denies pain/discomfort. Call light with reach.
--- NOTE | 2016-08-08 18:24 | PCM.PNMED ---
Subjective Date of Service Aug 08, 2016 Subjective Patient states he is doing okay, has no complaints. Denies any lightheadedness , dizziness, worsening swelling or pain in his right lower extremity. No shortness. No fevers, chills, cold sweats. Exam Vital Signs Vital Sign - Last Date Time Temp Pulse Resp B/P Pulse Ox O2 Delivery O2 Flow Rate FiO2 08/08/16 17:39 36.6 71 20 122/69 98 Room Air 08/08/16 14:12 2.00 Intake and Output 08/07/16 08/07/16 08/08/16 Cumulative From/Thru 14:59 22:59 06:59 08/06/16 22:38 - 08/08/16 06:20 Intake Total 820 ml 942 ml 3946 ml Output Total 325 ml 375 ml 800 ml Balance 495 ml 567 ml 3146 ml Intake Oral 820 ml 200 ml 1220 ml IV Total 742 ml 2726 ml Output Urine Total 325 ml 375 ml 800 ml # Voids 1 # Bowel Movements 1 1 Exam General: somnolent but opens eyes easily to verbal commands. Oriented X3, Cooperative, No Acute Distress. Head: Atraumatic. External ears normal. Eyes: PERRLA, EOMI. Anicteric sclerae. Conjunctiva are not injected Mouth: Mouth Normal, Mucous Membranes Moist/[place] Neck: Neck supple with full range of motion. No Thyromegaly. Small JVD noted. Chest & Lungs: Clear to auscultation bilaterally with no crackles, wheezes, or rhonchi. Normal respiratory effort without use of accessory muscles Cardiovascular: Regular Rate/Rhythm (sinus on the monitor), Normal S1, Normal S2, No Murmurs/Rubs/Gallops. Abdomen: Obese, Soft, Non-distended, Non-tender, No masses, Normoactive bowel tones. Left leg: mild pitting edema and purple discoloration consistent with venous insufficiency. Otherwise normal exam. Right leg: moderate +2 pitting edema from about 5 cm below the knee down to the foot with pedal edema. Erythema and warmth to touch in the same area. Tenderness to palpation throughout, especially in the right big toe. Ingrown right big toe nail, with dried blood. no ulcers or weeping appreciated. Neurological: Grossly Neurologically Intact, Cranial Nerves 2-12 Intact, Normal Speech (no slurring appreciated), Gait was not assessed at this time Psych: Normal mood and affect. IVs and Medications Medications Reviewed: Medications were reviewed in detail Lab and Diagnostics Result Diagram: 08/08/16 0247 08/08/16 0247 X-Rays, CTs and MRIs Venous duplex ultrasound right lower extremity performed 08/07/2016 IMPRESSION: No deep venous thrombosis identified within the right lower extremity. Dictated by: Rainer BAUTISTA Interpreted: Meena Turner MD on 08/07/2016 at 16: 32 X-ray right foot complete, 3 views, performed 08/07/16 IMPRESSION: 1. Diffuse osteopenia and bony osteolysis involving the first metatarsal head suspicious for osteomyelitis. 2. Osteoarthritic changes. Dictated by: Rainer BAUTISTA Interpreted: Meena Turner MD on 08/07/2016 at 13: 46 12-lead ECG Sinus rhythm, Rate 81 Right bundle branch block but no acute changes Cardiac Echo Impressions Per Next Gen: Echo (EF 0.55 (55%)) - 01/25/2016 Echo (EF 0.58 (58%)) - 07/2015 Gil MPI (Normal EF, Inferior Scar vs Gut Artifact) - 01/25/2016 Complete echocardiogram performed on 08/07/2016 Interpretation Summary 1) Mild-moderate concentric left ventricular hypertrophy with normal size, normal wall motion, and normal systolic function (EF 60-65%). 2) Mild to moderately dilated right ventricle with moderately reduced function. 3) Severe right atrial enlargement with inter-atrial septum bowing to the left, suggestive of volume overload. 4) Severe functional tricuspid regurgitation present. 5) Elevated right sided filling pressures based on IVC assessment. 6) High normal pulmonary artery pressures, estimated systolic pulmonary pressure of 34mmHg. 7) No prior echo available for comparison. Findings consistent with right ventricular heart failure. Assessment & Plan 86 year old male with a history of chronic chronic afib on warfarin, hypertension, coronary artery disease, and congestive heart failure who presents to the ED with increasing redness and swelling of his right leg that began prior to arrival. hospital day 1 1. Acute gram-negative bacteremia, present on admission, active 2 out of 2 blood cultures positive for gram-negative rods. Exact identification and sensitivities pending. Substantial increase in procalcitonin, we will continue to trend. Most likely source is cellulitis and possible osteomyelitis of RLE Infectious disease consulting, treatment as below. 2.Acute cellulitis of the right lower extremity. Present on admission. Active. - Patient does not meet SIRS/Sepsis criteria. Normal lactic acid (1.7) and procalcitonin (0.07). Will continue to trend lactic acid. - Concerning about superimposed cat scratch disease and acute ingrown toenail of the big toe. - Patient received Meropenem+Vanco+Clindamycin in the ED. - Blood culture positive for gram-negative rods 2. - Infectious diseases consultation: Oral doxycycline plus IV Unasyn. day 1. MRSA screen negative, ASO titer pending, ultrasound right lower extremity negative for DVT Plain film of right foot shows arthritis and suspicious for osteomyelitis. Consider MRI or Bone Biopsy in the coming days. - Blood pressure has been low 90's (systolic). Asymptomatic MVP preserved. 3. Acute hypotension, not present on admission, active. -Patient's blood pressure dropped overnight after diuretics were held. Patient' s baseline blood pressure is not known. -Patient remained asymptomatic. . -EKG remained sinus rhythm. -Lactic acid was normal. -Other vitals signs remained normal, no signs of shock. -Remained stable through out the day. Will be given night time dose of 40mg IV furosemide. Vital signs every 2 hours, transferred to CCU if Pressor support needed. 4. Possible diastolic congestive heart failure exacerbation, acute. Present on admission. Active. - Patient reports increasing LE edema, SOB, and dry cough. No sputum production. Small JVD noted on exam. - Pro-BNP of 3664. - Complete echo: Findings consistent with right ventricular heart failure, severe functional tricuspid regurgitation. - Will need to monitor strict I/O and daily weight. - Nurse reports only a little over 300 mL voided throughout the day, possibly secondary to decreased kidney function. - Resume home Spironolactone tomorrow AM - Consider switching home Lisinopril to Losartan given chronic dry cough. 5. Elevated Tropnonin. Present on admission. Active. - Likely due to elevated renal function. Troponin trending up 0.063 tday 0.057 yesterday. - Normal EKG on admission, EKG was interpreted as NSR. Monitor Telemetry. - Will continue to trend Trop and order EKG if pt becomes symptomatic. 6. Acute kidney injury. Present on admission. Active. - Unknown if there was history of chronic kidney dysfunction. No prior labs for comparison. - IVF as above. Consider D/C IVF once kidney function improves. - Avoid nephrotoxic drugs. - Continue to monitor renal function. - decreased urine output today restart diuresis. If blood pressure unable to support diuresis, may consider addition of pressor medication, or dialysis. 7. Chronic atrial fibrillation on chronic anticoagulation. Stable. - Normal sinus rhythm and rate on admission. - INR is subtherapeutic (1.67). Continue to monitor INR. - Patient was on Metoprolol before, but it was discontinued due to significant bradycardia. - Will continue Warfarin. Dosing per pharmacy. - Monitor Telemetry. - Follow up with cardiology as outpatient for Event Monitor. 8. Hypertension, chronic, stable. - Resume home Spironolactone. Holding Lisinopril at this time. - Continue to monitor. 9. History of CAD, presume stable. - Patient currently not on ASA or statin. - Lipid panel was unremarkable. 8. Chronic urinary retention, presume stable. - Will resume home Doxazosin after med rec. 10. Depression, chronic. - Resume home Fluoxetine after med rec. CODE STATUS: DNR/DNI per the patient. - Acetaminophen and Dilaudid as needed for pain - Bowel regimen as needed - Antiemetic as needed Disposition: Patient likely to continue to require IV antibiotics 2-3 more days due to severity of disease and specialist consultation. Likely discharge home if no further complications Pain Evaluation: Adequate Pain Control GI Prophylaxis: H2 luan VTE Prophylaxis: Theraputic Anticoag with Warfarin Resuscitation Status: DNR/DNI:Do Not Resuscitate/Intubate Time spent 30 minutes Attending Statement The patient was seen and examined together with Dr. Alcala on 08/08/16 and I have added additional information to the note above. Tyrese Alcala DO Aug 08, 2016 18:24 Laverne Talamantes DO Aug 10, 2016 14:39
[2016-08-09] VITALS (12 sets, daily range): BP systolic 93–117; BP diastolic 50–70; PULSE 61–70; RESP 19–24; O2SAT 94–98
[2016-08-09 04:30] LABS: BASOPHILS % (AUTO) 0 % (0-3); EOSINOPHILS % (AUTO) 0.7 % (0-5); MONOCYTES % (AUTO) 6.2 % (4-12); Mean Corpuscular Hemoglobin 31.5 pg (27.0-35.0); Mean Corpuscular Volume 94.6 fL (81-100); NEUTROPHILS % (AUTO) 82.8 % (40-74); Platelet Count 89 bil/L (150-400)
[2016-08-09 04:43] LABS: INR 2.77 ratio
[2016-08-09] MEDS: Pantoprazole 40 mg ER24 Tablet PO SCH (06:07)
--- NOTE | 2016-08-09 06:12 | NUR ---
q2 VS/lasix gave pt IV lasix last night, pts BP tolerating it, q2 hour VS, pt voiding 425cc per urinal and incontinent x2 in his brief. pt very drowsy this shift, sleeping on and off this shift.
[2016-08-09] MEDS: Furosemide 10 mg/mL 4 mL Inj IVPUSH SCH ×2 (08:30→20:09)
[2016-08-09] MEDS: Ampicillin-Sulbactam Inj 3,000 MG in 0.9% Sodium Chloride 100 ML IV SCH ×2 (08:45→20:09)
--- NOTE | 2016-08-09 08:54 | PROG NOTE ---
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 INTERVAL HISTORY: Overnight, the patient has felt kind of sophia in that he had difficult sleep and continues to have pain in his right lower extremity, along with swelling and redness. He notes no fever or chills, however, and he is not short of breath nor is he having chest pain, nausea, vomiting or diarrhea. PHYSICAL EXAMINATION: Reveals an afebrile gentleman sitting on the side of the bed. Temp 36.6, pulse 68, respiratory rate 23, blood pressure 113/56, saturating well on 2 L. Mental status is sharp. Oral cavity unremarkable. Lungs: A few crackles at the bases bilaterally. Cardiac tones without new murmur. Abdomen benign. Right lower extremity swollen with mild erythema. No better than yesterday and perhaps even slightly worse. IMAGING: Of the right foot showed questionable osteo. I discussed this case in detail with the radiologist who recommended we get an MRI scan without contrast given the patient's worsening renal failure. LABORATORY STUDIES: Include white count of 7500, still with left shift, 83% segs. Creatinine is rising, now 3.13. LFTs basically normal. Procalcitonin has dropped a bit from 18-13. Serologic studies, negative. Cultures grew Pasteurella from blood. Follow up blood cultures are negative at one day. The Pasteurella is sensitive to Cipro as well as Unasyn and ceftriaxone. The x-ray as noted was ambiguous on the right foot and so we are ordering an MRI scan as mentioned. IMPRESSION: This patient has a high-grade Pasteurella bacteremia. The echo and physical exam did not disclose any evidence of Pasteurella endocarditis, which is a rare entity. 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 RECOMMENDATIONS: 1. Unasyn should be adjusted to 3 g q.12 h, and we have made that adjustment. 2. MRI scan of the right foot will be ordered without contrast to evaluate for osteo. 3. Nephrology has been consulted by the team regarding his worsening renal failure. 4. I would figure on keeping the patient here several more days until we have clear-cut improvement in his renal failure as well as an answer as to whether or not he has osteo. 5. Duration of therapy would be about 10 days. If he does not have osteo and will have to treat for six weeks. If he does have osteo, one convenient option might be an oral quinolone so I would not hendrickson to put a PICC line in at this point. Note that this case was discussed in detail with the Internal Medicine team.
--- NOTE | 2016-08-09 11:27 | CONS ---
[address] [address] CONSULTATION REPORT PATIENT: ANUPAM GREGORY : 1930 MR#: [id number] ADMIT: 08/07/2016 JOB ID: [id number] DATE OF SERVICE: 08/09/2016 HISTORY: The patient is a very pleasant 86-year-old white male who was admitted to [facility] for right lower leg cellulitis and osteomyelitis following a cat bite. Since admission, he has developed what appears to be an acute on chronic kidney injury, and renal consultation is being sought for further evaluation and management of his acute kidney injury. The patient states that about a week prior to admission, his right foot was bitten by his daughter's cat. Since that time, there has been some gradual increasing in erythema, pain, and induration which has progressively gone from his foot up to his mid calf region of his right leg. As the condition continued to worsen, he came to the emergency room and at that time was admitted. He also states that he has been treating the pain and inflammation with frequent doses of ibuprofen which no doubt has contributed to his renal issues. On admission, he was started on Zosyn, Protonix, however I do not see where any vancomycin was given. He has not had any contrast studies. At time of admission, his creatinine was 1.84 and has progressively risen to a level of 3.3 today. Reviewing his blood pressures, I see that he has had a number of episodes of layne hypotension on Sunday and Sunday with systolic blood pressures in the 70-80 range. At time of admission, his systolic blood pressure was 158. He has also had a progressive tapering of his urine output despite aggressive IV hydration. He denies a history of any prior renal problems. There is no history of diabetes. However, he does have a longstanding history of hypertension with hypertensive heart disease, probable hypertensive nephrosclerosis, and a history of coronary artery disease with congestive heart failure. He states that both lower extremities have had some progressive increase in fluid retention for the last several weeks. He denies a history of any prior hematuria, proteinuria, recurrent urinary tract infections, prior frequent use of nonsteroidal anti-inflammatories, and states that he does have some intermittent occasional difficulties with urination secondary to probable benign prostatic hypertrophy. PAST MEDICAL HISTORY: 1. Significant for mild chronic kidney disease of unknown duration. 2. Hypertension with hypertensive heart disease and hypertensive nephrosclerosis. 3. Coronary artery disease. 4. Atrial fibrillation. 5. Congestive heart failure with right-sided issues and failure. 6. There is also a history of osteoarthritis of both knees and a hip replacement. PAST SURGICAL HISTORY: Significant for a left hip total replacement. ALLERGIES: He is not allergic to any food or any medications. SOCIAL HISTORY: He currently does not consume alcohol or tobacco. 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 He is currently living with his daughter in [place]. He states that he normally is able to care for himself until this recent illness. FAMILY HISTORY: Noncontributory. REVIEW OF SYSTEMS: Remarkable for some progressive increase in lower extremity edema, worsening orthopnea, some dyspnea with exertion, and paroxysmal nocturnal dyspnea. He does state he feels that his abdomen has increased in size. He denies any nausea, vomiting, cough, wheezing, diarrhea, or rashes. MEDICATIONS: At time of my evaluation include: 1. Zosyn. 2. Protonix. 3. Cardura. 4. Doxycycline. 5. Spironolactone. 6. Furosemide. PHYSICAL EXAMINATION: Revealed a mildly obese 86-year-old, white male who was alert and oriented x3 and in no distress at time of my evaluation. His blood pressure was 93/57 with a heart rate of 70. HEENT examination is remarkable for pale sclerae. Neck is supple without adenopathy or thyromegaly. He has marked jugular venous distention at 90 degrees elevation. Lungs showed some bibasilar rales but were predominantly clear. He does have an increase in AP diameter. Heart was irregularly irregular. Abdomen is soft with free fluid wave noted. There is evidence of hepatosplenomegaly, pulsatile liver, and marked hepatojugular reflux. Extremities showed some moderate to large pitting lower extremity edema, a bit more pronounced on the left as compared to the right, partially due to the cellulitis and osteomyelitis in the foot. The edema is pitting and goes up through his proximal thighs. The skin turgor is good, and there is no evidence of any rashes. LABORATORY EXAMINATION: As noted above, on admission his creatinine was 1.8 and has progressively risen since that time. This morning, his sodium is 134, potassium 4.9, chloride 98, bicarbonate 20, BUN and creatinine 57 and 3.3, respectively. His bilirubin is 1.3. However, his other liver function tests are normal. His albumin is low at 3.1, and his procalcitonin is 13.13. This morning, his white count was 7.5, hemoglobin 9.3, hematocrit 27.9. Red cell indices and platelet count were normal. However, he did have evidence of leukocytosis with a neutrophil count of 83%. Streptozyme is pending at time of this dictation. His urinalysis taken on admission showed a specific gravity 1.015, pH of 6. Tests for protein, glucose, occult blood, and ketones were negative. His remaining urinalysis was unremarkable. An echocardiogram obtained during this admission showed moderate concentric left ventricular hypertrophy with normal ejection fraction. However, he does have elevated right-sided pressures with a dilated right ventricle, reduced LV function, and considerable right atrial enlargement. Although not called on the echo, I would be concerned about some subtle diastolic dysfunction in the patient's case. IMPRESSION: 1. Acute kidney injury secondary to drug-induced acute kidney injury plus hypotension. 2. Baseline chronic kidney disease stage 3. 3. Hypertension with hypertensive heart disease and hypertensive nephrosclerosis with chronic right-sided congestive heart failure. 4. Anemia secondary to chronic kidney disease. RECOMMENDATION: I would like to obtain a renal ultrasound along with an ultrasound of his abdomen to assess for ascitic fluid. I would also like to obtain a uric acid level and a serum protein electrophoresis. We need to discontinue the Protonix, as this has been associated with acute kidney injury and does not appear to be indicated at this time. I would also like to try to increase his IV diuretics to 80 mg of Lasix IV twice a day. Once again, I would like to thank you for allowing me to participate in the care of this most pleasant and interesting patient. I will be following him closely with you.
--- NOTE | 2016-08-09 16:52 | DRSVH ---
PROCEDURE: MRI FOREFOOT RIGHT WITHOUT CONTRAST ([id number]) INDICATIONS: +pasturella, celulitis. osteomyolitis? TECHNIQUE: Noncontrast sagittal T1 spin echo and T2 fast spin echo with fat saturation, long-axis T1 spin echo a nd T2 fast spin echo with fat saturation, short-axis T1 spin echo and T2 fast spin echo with fat satu ration through the forefoot. COMPARISON: None. FINDINGS: Image quality: Diagnostic. Bones and joints: There is no acute fracture or dislocation evident involving the osseous structures of the right forefoot and midfoot. No suspicious osseous lesions are identified. Mild to moderate d egenerative changes involving the midfoot and forefoot joints are noted, more prominent involving the great toe and the 2nd tarsometatarsal joint. No definite marrow edema is appreciated. Evaluation f or osteomyelitis is limited without intravenous contrast. Soft tissues: Extensive subcutaneous edema is present involving the imaged right foot which is more prominent along the dorsal aspect of the midfoot. No drainable or loculated fluid collections are ap preciated. Along the plantar surface of the distal phalanx of the great toe, there is a heterogeneous structure that has an ovoid appearance that is located adjacent to the undersurface of the bone that measures a pproximately 2.0 x 1.4 x 1.6 cm (image 39, series 12 image 20, series 10). This structure demonstrat es increased peripheral signal and decreased central signal on the fluid sensitive sequences and inte rmediate signal on the T1 images with slight decrease signal centrally. Mild edema within the adjace nt tissues is evident. This structure appears to be positioned superficial to the flexor pollicis lo ngus tendon. There is thickening noted involving the distal margin of the tibialis anterior tendon and the distal aspect of the peroneus longus tendon. Otherwise, the remainder of the imaged tendons appear to be wi thin normal limits. No full-thickness tendon tears are identified. Ligamentous structures of the fo refoot are not well seen. The Lisfranc ligament appears intact. IMPRESSION: 1. Extensive soft tissue edema of the right mid foot and forefoot without a drainable abscess/fluid collection is suspicious for cellulitis. 2. No convincing findings of osteomyelitis are identified. However, without intravenous contrast, e valuation for subtle osteomyelitis is limited. 3. Soft tissue mass underlying the plantar surface of the distal phalanx of the great toe is nonspec ific and may represent a small neuroma. Granulation tissue from a retained foreign body could also h ave this appearance. Contrast enhanced MRI of the forefoot is recommended for better evaluation. 4. Mild to moderate tibialis anterior and peroneus longus tendinopathy. 5. Mild to moderate degenerative changes involving the midfoot and forefoot joints. Dictated by: Adelso Reinoso M.D. on 08/09/2016 at 15:22 Approved by: Adelso Reinoso M.D. on 08/09/2016 at 15:50
[2016-08-09] MEDS: HYDROmorphone 0.5 mg/0.5 mL iSecure Syringe IVPUSH PRN (18:42)
--- NOTE | 2016-08-09 19:21 | NUR ---
MRI, Pain He left [facility] about 1518 for an MRI of his right foot. He returned about 1615. He complained of back pain upon return saying the test was "very uncomfortable." Let him rest for awhile, but then this evening he requested some pain medicine. He reported 5/10 left lower back pain, but his daughter said it would be more like a 7/10 since he never complains of pain and tries to just work through it himself. "He is not a complainer," she said. Gave 0.5 mg of IV Dilaudid. He is now sleeping. Paged day resident R2 about 1848, but have not heard back yet. shift boss notified. Care continues.
--- NOTE | 2016-08-09 20:03 | PCM.PNMED ---
Subjective Date of Service Aug 09, 2016 Subjective Patient's has no somatic complaints this morning. States he is upset that he has to stay in the hospital and cannot go home, however understands that he is sicker than he feels and is appreciated of the help. Denies any chest pain, shortness of breath, lightheadedness, dizziness, worsening swelling in his arms hands feet or legs, no additional pain in his right lower extremity, no fevers, no chills, no cold sweats. Some incontinence overnight. Exam Vital Signs Vital Sign - Last Date Time Temp Pulse Resp B/P Pulse Ox O2 Delivery O2 Flow Rate FiO2 08/09/16 12:47 36.6 61 20 102/51 98 Nasal Cannula 2.00 Intake and Output 08/08/16 08/08/16 08/09/16 Cumulative From/Thru 15:00 23:00 07:00 08/06/16 22:38 - 08/09/16 06:18 Intake Total 1490 ml 405 ml 5841 ml Output Total 300 ml 425 ml 1525 ml Balance 1190 ml -20 ml 4316 ml Intake Oral 840 ml 200 ml 2260 ml IV Total 650 ml 205 ml 3581 ml Output Urine Total 300 ml 425 ml 1525 ml # Voids 2 3 # Bowel Movements 1 Exam General: Oriented X3, Cooperative, No Acute Distress. Head: Atraumatic. External ears normal. Eyes: PERRLA, EOMI. Anicteric sclerae. Conjunctiva are not injected Mouth: Mouth Normal, Mucous Membranes Moist/[address] Neck: Neck supple with full range of motion. No Thyromegaly. Small JVD noted. Chest & Lungs: Clear to auscultation bilaterally with no crackles, wheezes, or rhonchi. Normal respiratory effort without use of accessory muscles Cardiovascular: Regular Rate/Rhythm, Normal S1, Normal S2, faint systolic murmur. Abdomen: Obese, Soft, Non-distended, Non-tender, No masses, Normoactive bowel tones. Left leg: mild +1 pitting edema and purple discoloration consistent with venous insufficiency. Otherwise normal exam. Right leg: moderate +2 pitting edema from about 5 cm below the knee down to the foot with pedal edema. Erythema and warmth to touch in the same area. Tenderness to palpation throughout, especially in the right big toe. Ingrown right big toe nail, with dried blood. no ulcers or weeping appreciated. Neurological: Grossly Neurologically Intact, Cranial Nerves 2-12 Intact, Normal Speech (no slurring appreciated), Gait was not assessed at this time Psych: Normal mood and affect. IVs and Medications Medications Reviewed: Medications were reviewed in detail Lab and Diagnostics Result Diagram: 08/09/16 0344 08/09/16 0344 X-Rays, CTs and MRIs Right foot magnetic resonance imaging without contrast performed 08/09/2016 - personally reviewed imaging. IMPRESSION: 1. Extensive soft tissue edema of the right mid foot and forefoot without a drainable abscess/fluid collection is suspicious for cellulitis. 2. No convincing findings of osteomyelitis are identified. However, without intravenous contrast, evaluation for subtle osteomyelitis is limited. 3. Soft tissue mass underlying the plantar surface of the distal phalanx of the great toe is nonspecific and may represent a small neuroma. Granulation tissue from a retained foreign body could also have this appearance. Contrast enhanced MRI of the forefoot is recommended for better evaluation. 4. Mild to moderate tibialis anterior and peroneus longus tendinopathy. 5. Mild to moderate degenerative changes involving the midfoot and forefoot joints. Dictated by: Adelso Reinoso M.D. on 08/09/2016 at 15:22 Venous duplex ultrasound right lower extremity performed 08/07/2016 IMPRESSION: No deep venous thrombosis identified within the right lower extremity. Dictated by: Rainer BAUTISTA Interpreted: Meena Turner MD on 08/07/2016 at 16: 32 X-ray right foot complete, 3 views, performed 08/07/16 IMPRESSION: 1. Diffuse osteopenia and bony osteolysis involving the first metatarsal head suspicious for osteomyelitis. 2. Osteoarthritic changes. Dictated by: Rainer BAUTISTA Interpreted: Meena Turner MD on 08/07/2016 at 13: 46 12-lead ECG Sinus rhythm, Rate 81 Right bundle branch block but no acute changes Cardiac Echo Impressions Per Next Gen: Echo (EF 0.55 (55%)) - 01/25/2016 Echo (EF 0.58 (58%)) - 07/2015 Gil MPI (Normal EF, Inferior Scar vs Gut Artifact) - 01/25/2016 Complete echocardiogram performed on 08/07/2016 Interpretation Summary 1) Mild-moderate concentric left ventricular hypertrophy with normal size, normal wall motion, and normal systolic function (EF 60-65%). 2) Mild to moderately dilated right ventricle with moderately reduced function. 3) Severe right atrial enlargement with inter-atrial septum bowing to the left, suggestive of volume overload. 4) Severe functional tricuspid regurgitation present. 5) Elevated right sided filling pressures based on IVC assessment. 6) High normal pulmonary artery pressures, estimated systolic pulmonary pressure of 34mmHg. 7) No prior echo available for comparison. Findings consistent with right ventricular heart failure. Assessment & Plan 86 year old male with a history of chronic chronic afib on warfarin, hypertension, coronary artery disease, and congestive heart failure who presents to the ED with increasing redness and swelling of his right leg that began prior to arrival. hospital day 3 1. Acute Pasturella multocida bacteremia, present on admission, active -2 out of 2 blood cultures positive for gram-negative rods. -Sensitive to current antibiotics -Substantial increase in procalcitonin on hospital day 2 (18.06), has mildly decreased today 13.13 -Most likely source is cellulitis or possible osteomyelitis of RLE -Infectious disease consulting, treatment as below. 2.Acute cellulitis of the right lower extremity. Present on admission. Active. - Patient does not meet SIRS/Sepsis criteria. Normal lactic acid (1.7) and procalcitonin (0.07). Will continue to trend lactic acid. - Concerning about superimposed cat scratch disease and acute ingrown toenail of the big toe. - Patient received Meropenem+Vanco+Clindamycin in the ED. - Blood culture positive as above. - Infectious diseases consultation: Oral doxycycline plus IV Unasyn. day 3. MRSA screen negative, ASO titer pending, ultrasound right lower extremity negative for DVT MRI w/o Contrast: Substantial soft tissue inflammation. No convincing findings of osteomyelitis. No abscess. - Blood pressure has gone into the 90's. Asymptomatic MVP preserved. 3. Acute kidney injury. Present on admission. Worsening. - Serum creatinine is nearly tripled since admission, secondary to drug-induced injury plus hypotension - Nephrology consultation, we greatly appreciate their time, evaluation and recommendations Renal ultrasound abdominal ultrasound to assess for ascitic fluid results pending Discontinue Protonix. Increase diuretic to 80 mg Lasix IV twice a day 4. Acute hypotension, not present on admission, active. -Patient's blood pressure dropped overnight first day hospital, has remained low but stable, received Lasix last night and maintain blood pressure. -Patient remained asymptomatic. . -EKG remained sinus rhythm. -Lactic acid was normal. -Other vitals signs remained normal, no signs of shock. -Remained stable through out the day. 5. Possible diastolic congestive heart failure exacerbation, acute. Present on admission. Active. - Patient reports increasing LE edema, SOB, and dry cough. No sputum production. Small JVD noted on exam. - Pro-BNP of 3664. - Complete echo: Findings consistent with right ventricular heart failure, severe functional tricuspid regurgitation. - Will need to monitor strict I/O and daily weight. - Nurse reports only a little over 300 mL voided throughout the day, possibly secondary to decreased kidney function. - Resume home Spironolactone tomorrow AM - Consider switching home Lisinopril to Losartan given chronic dry cough once patient's BP is stable. 6. Elevated Tropnonin. Present on admission. Active. - Likely due to elevated renal function. Increased again in AM check. - Normal EKG on admission, EKG was interpreted as NSR. Monitor Telemetry. - Will continue to trend Trop and order EKG if pt becomes symptomatic. 7. Chronic atrial fibrillation on chronic anticoagulation. Stable. - Normal sinus rhythm and rate on admission. - INR is subtherapeutic (1.67). Continue to monitor INR. - Patient was on Metoprolol before, but it was discontinued due to significant bradycardia. - Will continue Warfarin. Dosing per pharmacy. - Monitor Telemetry. - Follow up with cardiology as outpatient for Event Monitor. 8. Hypertension, chronic, stable. - Resume home Spironolactone. Holding Lisinopril at this time. - Continue to monitor. 9. History of CAD, presume stable. - Patient is not on ASA or statin. - Lipid panel was unremarkable. 8. Chronic urinary retention, stable (patient currently having some bouts of urinary incontinence). - Continue Doxazosin 10. Depression, chronic. - Resume home Fluoxetine after med rec. CODE STATUS: DNR/DNI per the patient. - Acetaminophen and Dilaudid as needed for pain - Bowel regimen as needed - Antiemetic as needed Disposition: Patient likely to continue to require IV antibiotics 2-3 more days due to severity of disease and specialist consultation. Likely discharge home if no further complications GI Prophylaxis: H2 luan VTE Prophylaxis: Theraputic Anticoag with Warfarin Resuscitation Status: DNR/DNI:Do Not Resuscitate/Intubate Time spent 35 minutes Attending Statement The patient was seen and examined together with on 08/09/16 and I have added additional information to the note above. Tyrese Rivers DO Aug 09, 2016 20:03 Laverne Talamantes DO Aug 10, 2016 16:32
[2016-08-10] VITALS (8 sets, daily range): BP systolic 109–128; BP diastolic 57–76; PULSE 57–70; RESP 16–19; O2SAT 95–98
[2016-08-10 03:09] LABS: Hepatitis A Antibody IgM Negative (Negative); Hepatitis B Core Antibody IgM Negative (Negative)
[2016-08-10 03:23] LABS: INR 2.13 ratio
[2016-08-10 03:36] LABS: Unsaturated Iron Binding 186.9 ug/dL
--- NOTE | 2016-08-10 04:15 | NUR ---
NOC: Pt denies pain overnight. HS lasix given- BP remains stable slightly hypotensive SBP high 90s- 110s. HS lasix given. Pt frequently urinating with episodes of incontinence. Sleeping intermittently overnight. Care ongoing.
[2016-08-10 08:21] LABS: BASOPHILS % (AUTO) 0.2 % (0-3); EOSINOPHILS % (AUTO) 1.2 % (0-5); MONOCYTES % (AUTO) 5.4 % (4-12); Mean Corpuscular Hemoglobin 31.9 pg (27.0-35.0); Mean Corpuscular Volume 94.3 fL (81-100); NEUTROPHILS % (AUTO) 78.3 % (40-74); Platelet Count 104 bil/L (150-400)
--- NOTE | 2016-08-10 08:45 | PROG NOTE ---
[address] [address] PROGRESS NOTE PATIENT: ANUPAM GREGORY : 1930 MR#: [id number] ADMIT: 08/07/2016 JOB ID: [id number] DATE: 08/10/2016 INFECTIOUS DISEASE FOLLOW UP NOTE: REASON FOR FOLLOWUP: Severe and bacteremic right lower extremity soft tissue infection due to Pasteurella. INTERVAL HISTORY: Overnight, the patient reports he has improved somewhat. His right lower extremity is still swollen but it is less red and less painful. He has had no fevers, chills, cough, shortness of breath or chest pain. He notes his urine output is reasonable. PHYSICAL EXAMINATION: Reveals an afebrile gentleman, temperature 36.5, pulse 60, respiratory rate 16, blood pressure 117/61 saturating well on room air. He is in no acute distress. His mental status is clear. Oral cavity normal. Lungs quite clear. Abdomen soft, nontender without organomegaly. Left lower extremity has decreasing edema and is uninvolved by this process. The right lower extremity remains erythematous below the knee but is gradually improved both in terms of the swelling and the erythema. There are no open wounds and the patient has full range of motion of that limb. LABORATORIES: Include white count 5200, platelet count 104. Creatinine improved slightly down to 289 from 313 yesterday. AST and ALT are normal. Alk phos 170. Procalcitonin pending from today, was 13 yesterday. Hepatitis C negative. Streptozyme negative. Blood cultures, of course, positive for Pasteurella which turns out to be sensitive to Unasyn, ceftriaxone and Cipro. IMPRESSION: This patient starting to slowly improve. I suspect that his renal insufficiency was due to the significant hypotension and septic shock he had early on. At this point, both his leg and his renal function are improving. RECOMMENDATIONS: 1. Will continue with IV Unasyn at this point. As his renal function improves, we may increase the dose to q.8, but for now, q.12 is okay. 2. The MRI scan shows no evidence of osteo and that is reassuring and so our total course of therapy will probably be on the order of 10 days or so. 3. When the patient is ready for discharge, she can likely be discharged on Augmentin but I think he is still a couple days away from that given the extent of his soft tissue infection which is still extensive and his renal impairment.
[2016-08-10] MEDS: Ampicillin-Sulbactam Inj 3,000 MG in 0.9% Sodium Chloride 100 ML IV SCH ×2 (09:21→19:38)
[2016-08-10] MEDS: Furosemide 10 mg/mL 4 mL Inj IVPUSH SCH ×2 (09:22→19:38)
--- NOTE | 2016-08-10 13:16 | PCM.PNMED ---
Subjective Date of Service Aug 10, 2016 Subjective Patient states he is feeling very well, conveys a substantial improvement since admission. He denies any constant pain in his right leg. Continues to have chronic low back pain, which is amenable to oral analgesics. Denies any chest pain, shortness of breath, lightheadedness, dizziness, worsening edema in his arms and legs, no abdominal pain, no constipation, no diarrhea, no dysuria. He did have some urinary incontinence overnight. Exam Vital Signs Vital Sign - Last Date Time Temp Pulse Resp B/P Pulse Ox O2 Delivery O2 Flow Rate FiO2 08/10/16 12:38 36.4 62 16 126/67 95 Room Air 08/10/16 03:01 2.00 97 Intake and Output 08/09/16 08/09/16 08/10/16 Cumulative From/Thru 15:00 23:00 07:00 08/06/16 22:38 - 08/10/16 05:13 Intake Total 170 ml 400 ml 6411 ml Output Total 600 ml 2125 ml Balance 170 ml -200 ml 4286 ml Intake Oral 300 ml 2560 ml IV Total 170 ml 100 ml 3851 ml Output Urine Total 600 ml 2125 ml # Voids 4 7 # Bowel Movements 1 Exam General: Oriented X3, Cooperative, No Acute Distress. Head: Atraumatic. External ears normal. Eyes: PERRLA, EOMI. Anicteric sclerae. Conjunctiva are not injected Mouth: Mouth Normal, Mucous Membranes Moist/[place] Neck: Neck supple with full range of motion. No Thyromegaly. JVD improved Chest & Lungs: Clear to auscultation bilaterally with no crackles, wheezes, or rhonchi. Normal respiratory effort without use of accessory muscles Cardiovascular: Regular Rate/Rhythm, Normal S1, Normal S2, faint systolic murmur. Abdomen: Obese, Soft, Non-distended, Non-tender, No masses, Normoactive bowel tones. Left leg: mild +1 pitting edema and purple discoloration consistent with venous insufficiency. Otherwise normal exam. Right leg: moderate +2 pitting edema from about 5 cm below the knee down to the foot with pedal edema. There is appreciable wrinkling, and tissue is less taut than yesterday, discoloration has continued to recede from line of demarcation traced out before admission. Leg continues to be tender. Neurological: Grossly Neurologically Intact, Cranial Nerves 2-12 Intact, Normal Speech (no slurring appreciated), Gait was not assessed at this time Psych: Normal mood and affect. IVs and Medications Medications Reviewed: Medications were reviewed in detail Lab and Diagnostics Result Diagram: 08/10/16 0246 08/10/16 0246 Microbiology PASTURELLA MULTOCIDA grown from blood cultures 2 X-Rays, CTs and MRIs Abdominal ultrasound performed 08/09/2016 IMPRESSION: 1. Contracted gallbladder with thickened gallbladder wall measuring up to 11 mm. Cholecystitis cannot be excluded and clinical correlation recommended. 2. Complex focus seen adjacent to the spleen of unclear etiology. If indicated CT could be performed for further assessment. 3. Small right upper pole hypoechoic mass within the right renal pelvis which may represent a complex cyst but solid renal mass cannot be excluded. This lesion also could be assessed with CT. 4. Small bilateral pleural effusions and moderate ascites. Dictated by: Rainer BAUTISTA Interpreted: Geri Mcbride MD on 08/09/2016 at 16:03 Right foot magnetic resonance imaging without contrast performed 08/09/2016 - personally reviewed imaging. IMPRESSION: 1. Extensive soft tissue edema of the right mid foot and forefoot without a drainable abscess/fluid collection is suspicious for cellulitis. 2. No convincing findings of osteomyelitis are identified. However, without intravenous contrast, evaluation for subtle osteomyelitis is limited. 3. Soft tissue mass underlying the plantar surface of the distal phalanx of the great toe is nonspecific and may represent a small neuroma. Granulation tissue from a retained foreign body could also have this appearance. Contrast enhanced MRI of the forefoot is recommended for better evaluation. 4. Mild to moderate tibialis anterior and peroneus longus tendinopathy. 5. Mild to moderate degenerative changes involving the midfoot and forefoot joints. Dictated by: Adelso Reinoso M.D. on 08/09/2016 at 15:22 Venous duplex ultrasound right lower extremity performed 08/07/2016 IMPRESSION: No deep venous thrombosis identified within the right lower extremity. Dictated by: Rainer BAUTISTA Interpreted: Meena Turner MD on 08/07/2016 at 16: 32 X-ray right foot complete, 3 views, performed 08/07/16 IMPRESSION: 1. Diffuse osteopenia and bony osteolysis involving the first metatarsal head suspicious for osteomyelitis. 2. Osteoarthritic changes. Dictated by: Rainer BAUTISTA Interpreted: Meena Turner MD on 08/07/2016 at 13: 46 12-lead ECG Sinus rhythm, Rate 81 Right bundle branch block but no acute changes Cardiac Echo Impressions Per Next Gen: Echo (EF 0.55 (55%)) - 01/25/2016 Echo (EF 0.58 (58%)) - 07/2015 Gil MPI (Normal EF, Inferior Scar vs Gut Artifact) - 01/25/2016 Complete echocardiogram performed on 08/07/2016 Interpretation Summary 1) Mild-moderate concentric left ventricular hypertrophy with normal size, normal wall motion, and normal systolic function (EF 60-65%). 2) Mild to moderately dilated right ventricle with moderately reduced function. 3) Severe right atrial enlargement with inter-atrial septum bowing to the left, suggestive of volume overload. 4) Severe functional tricuspid regurgitation present. 5) Elevated right sided filling pressures based on IVC assessment. 6) High normal pulmonary artery pressures, estimated systolic pulmonary pressure of 34mmHg. 7) No prior echo available for comparison. Findings consistent with right ventricular heart failure. Assessment & Plan 86 year old male with a history of chronic chronic afib on warfarin, hypertension, coronary artery disease, and congestive heart failure who presents to the ED with increasing redness and swelling of his right leg that began prior to arrival. hospital day 4 1. Acute Pasturella multocida bacteremia, present on admission, active -2 out of 2 blood cultures positive for gram-negative rods. -Sensitive to current antibiotics -Substantial increase in procalcitonin on hospital day 2, has continued to decrease -Most likely source is cellulitis of right lower extremity -Infectious disease consulting, treatment as below, we appreciate their time, evaluation and recommendations. 2.Acute cellulitis of the right lower extremity. Present on admission. Active. - Patient does not meet SIRS/Sepsis criteria. Normal lactic acid (1.7) and procalcitonin (0.07). Will continue to trend lactic acid. - Concerning about superimposed cat scratch disease and acute ingrown toenail of the big toe. - Patient received Meropenem+Vanco+Clindamycin in the ED. - Blood culture positive as above. - Infectious diseases consultation: IV Unasyn. day 4. Discontinue oral doxycycline MRSA screen negative, ASO titer pending, ultrasound right lower extremity negative for DVT MRI w/o Contrast: Substantial soft tissue inflammation. No convincing findings of osteomyelitis. No abscess. -Imaging personally reviewed - Blood pressure has decreased into the 90's. Asymptomatic MVP preserved. 3. Acute kidney injury. Present on admission. Worsening. - Serum creatinine is nearly tripled since admission, secondary to drug-induced injury plus hypotension - Nephrology consultation, we greatly appreciate their time, evaluation and recommendations Abdominal ultrasound: Moderate ascites, small bilateral pleural effusions, right renal pelvis mass, "complex focus" adjacent to spleen of unclear etiology. Thickened gallbladder wall. -Imaging personally reviewed Discontinue Protonix. Continue 40 mg Furosemid IV twice a day Add allopurinol for Hyperuricemia dosed per pharmacy for renal impairment. 4. Hyperuricemia, present on admission, chronicity unknown, active - Patient's uric acid level was found to be elevated, may be a component of gouty crystal accumulation to right lower extremity pathology - Recommendation per nephrology is to begin 100 mg daily of allopurinol. - Follow-up as an outpatient Chronic iron deficiency, present on admission, treatment initiated Iron studies were found to have low serum iron, low total iron binding capacity , and low percent saturation. Begin oral iron supplementation 4. Acute hypotension, not present on admission, active. -Patient's blood pressure dropped overnight first day hospital, has remained low but stable, continues to receive furosemide and maintain blood pressure. -Patient remained asymptomatic. . -EKG remained sinus rhythm. -Lactic acid was normal. -Other vitals signs remained normal, no signs of shock. -Remained stable through out the day. 5. Possible diastolic congestive heart failure exacerbation, acute. Present on admission. Active. - Patient reports increasing LE edema, SOB, and dry cough. No sputum production. Small JVD noted on exam. - Pro-BNP of 3664. - Complete echo: Findings consistent with right ventricular heart failure, severe functional tricuspid regurgitation. - Will need to monitor strict I/O and daily weight. - Resume home Spironolactone. - Consider switching home Lisinopril to Losartan given chronic dry cough once BP medications are restarted. 6. Elevated Tropnonin. Present on admission. resolving. - Likely due to elevated renal function. Currently remaining stable at 0.063 - Normal EKG on admission, EKG was interpreted as NSR. Monitor Telemetry. 7. Chronic atrial fibrillation on chronic anticoagulation. Stable. - Normal sinus rhythm and rate on admission. - INR is therapeutic (2.13). Continue to monitor INR. - Continue to hold Metoprolol secondary to bardycardia and hypotension - Will continue Warfarin. Dosing per pharmacy. - Monitor Telemetry. - Follow up with cardiology as outpatient for Event Monitor. 8. Hypertension, chronic, stable. - Resume home Spironolactone. Holding Lisinopril at this time. - Continue to monitor. 9. History of CAD, presume stable. - Patient is not on ASA or statin. - Lipid panel was unremarkable. 8. Chronic urinary retention, (currently incontinent) - Continue Doxazosin resumed. 10. Depression, chronic. - Resume home Fluoxetine after med rec. CODE STATUS: DNR/DNI per the patient. - Acetaminophen and Dilaudid as needed for pain - Bowel regimen as needed - Antiemetic as needed Disposition: Patient likely to continue to require IV antibiotics 1-2 more days due to severity of disease and specialist consultation. Likely discharge home if no further complications. Physical Therapy recommendation is for SNF by PT but patient would prefer to be discharged home with home PT if possible. Discussed the case in depth with infectious disease (Dr. Bishop) and nephrology (Dr. Mullins). Pain Evaluation: Adequate Pain Control GI Prophylaxis: H2 luan VTE Prophylaxis: Theraputic Anticoag with Warfarin Resuscitation Status: DNR/DNI:Do Not Resuscitate/Intubate Time spent 35 minutes Attending Statement The patient was seen and examined together with Dr. Rivers on 08/10/16 and I have added additional information to the note above. Tyrese Rivers DO Aug 10, 2016 13:16 Laverne Talamantes DO Aug 10, 2016 16:46
[2016-08-10] MEDS: HYDROmorphone 0.5 mg/0.5 mL iSecure Syringe IVPUSH PRN (17:34)
--- NOTE | 2016-08-10 18:37 | NUR ---
Activity/toileting Pt. tolerated standing and walking to [facility] today. Had large BM this a.m. Sat in chair for 2 hours this afternoon. Also uses urinal independently after lasix administration. Calmoseptine applied in case of incontinence. No incontinent episodes this shift.
[2016-08-11 03:06] LABS: Mean Corpuscular Hemoglobin 31.2 pg (27.0-35.0); Mean Corpuscular Volume 93.9 fL (81-100)
[2016-08-11 03:16] LABS: INR 1.85 ratio
[2016-08-11 03:43] VITALS: BP 133/64; PULSE 61; RESP 18; O2SAT 95
[2016-08-11 04:56] VITALS: PULSE 63
--- NOTE | 2016-08-11 05:26 | NUR ---
uneventful shift: Restful evening, Vitals stable, Pt denies any pain. sp02 90s on RA. Tele Sr with a first degree IVCD. Pt sleeping throughout majority of the night. care ongoing.
[2016-08-11 08:00] VITALS: PULSE 59
--- NOTE | 2016-08-11 08:55 | NUR ---
Resent referrals to [facility] and [facility], patient has [facility] and [facility] is unable to accept patient. Called and checked in with Ayah in admissions at [facility] to check on acceptance of patient.
[2016-08-11 08:57] VITALS: BP 134/68; PULSE 97; RESP 16; O2SAT 97
--- NOTE | 2016-08-11 09:01 | PROG NOTE ---
[address] [address] PROGRESS NOTE PATIENT: ANUPAM GREGORY : 1930 MR#: [id number] ADMIT: 08/07/2016 JOB ID: [id number] DATE: 08/11/2016 INFECTIOUS DISEASE FOLLOW UP NOTE: REASON FOR FOLLOW UP: Pasteurella soft tissue infection with associated septic shock and renal failure. INTERVAL HISTORY: Overnight, the patient continues to slowly improve. No fevers, chills, sweats, cough, shortness of breath. No nausea, vomiting, diarrhea. His right lower extremity continues to be gradually less painful and more functional. He was able to walk yesterday with physical therapy. PHYSICAL EXAMINATION: Reveals an afebrile, comfortable, elderly gentleman. Temperature 36.4, pulse 59, respiratory rate 18, blood pressure 133/64, saturating well on room air. Examination of the mental status reveals it to be completely clear. Lungs are clear. Cardiac tones regular rate and rhythm without new murmur. Abdomen obese, soft, nontender. The right lower extremity remains swollen and erythematous as compared to the left lower extremity below the knee but it is improving on a day-by-day basis. There is less warmth and tenderness each day. LABORATORIES: Include a white count normal 4300. Platelets gradually climbing to 111. Creatinine gradually falling. It was as high as 3.13 two days ago, 2.9 yesterday and 2.6 today. His calculated creatinine clearance is 25, but it is undoubtedly better than that as he has a daily creatinine drop. Hep C is negative. Streptozyme negative. No new cultures have been reported since the positive blood cultures for Pasteurella back on the . IMAGING: No new imaging since our MRI scan which suggested there was not osteomyelitis. IMPRESSION: This patient has suffered septic shock with resultant renal insufficiency due to Pasteurella bacteremia due to a cat bite. His right lower extremity cellulitis near the site of the cat bite is gradually improving and his septic parameters have completely resolved. His creatinine is dropping about 0.2 a day and his procalcitonin is dropping by about half a day suggesting we have good control of his infection and that he is doing much better. RECOMMENDATIONS: 1. Will continue with IV Unasyn q.12 hours. 2. Once the patient is ready for discharge, he could go out on Augmentin 875 p.o. b.i.d. for about one more total week of therapy. 3. Will continue to follow with you. 4. We could send the patient with 2 g of ceftriaxone just prior to his discharge as this would give him another one day of IV therapy directed at this organism while we also continue with the Augmentin as recommended above.
[2016-08-11] MEDS: Furosemide 10 mg/mL 4 mL Inj IVPUSH SCH ×2 (09:07→19:43)
[2016-08-11] MEDS: Ampicillin-Sulbactam Inj 3,000 MG in 0.9% Sodium Chloride 100 ML IV SCH ×2 (09:08→19:43)
[2016-08-11 12:33] VITALS: BP 150/72; PULSE 61; RESP 18; O2SAT 98
--- NOTE | 2016-08-11 13:54 | PCM.PNNEPH ---
Subjective Date of Service Aug 11, 2016 Subjective Patient is continuing to improve. He states that his breathing considerably better and denies any nausea, vomiting, or diarrhea. Last 24 hours she should 30 N and 2375 out. This morning his hemoglobin is 9.2, sodium 135, potassium, chloride 100 carbon 21, BUN and creatinine are 57 and 2.63 which is an improvement. Exam Vital Signs Vital Sign - Last Date Time Temp Pulse Resp B/P Pulse Ox O2 Delivery O2 Flow Rate FiO2 08/11/16 12:33 36.7 61 18 150/72 98 Room Air 08/10/16 03:01 2.00 97 Intake and Output 08/10/16 08/10/16 08/11/16 Cumulative From/Thru 15:00 23:00 07:00 08/06/16 22:38 - 08/11/16 06:24 Intake Total 730 ml 200 ml 7341 ml Output Total 1775 ml 1150 ml 5050 ml Balance -1045 ml -950 ml 2291 ml Intake Oral 600 ml 100 ml 3260 ml IV Total 130 ml 100 ml 4081 ml Output Urine Total 1775 ml 1150 ml 5050 ml # Voids 7 # Bowel Movements 1 Exam Neck is supple without adenopathy, thyromegaly, or jugular venous distention. Lungs are clear to auscultation. Heart is regular rhythm with a soft systolic murmur. Abdomen is soft without any tenderness rebound guarding masses or hepatosplenomegaly. Extremities showed some pitting edema which appears to have improved. There is continuing to have ongoing chronic skin changes with brawny induration. His right lower extremity cellulitis is also improved. Lab and Diagnostics Result Diagram: 08/11/16 0245 08/11/16 0245 Microbiology PASTURELLA MULTOCIDA grown from blood cultures 2 X-Rays, CTs and MRIs Abdominal ultrasound performed 08/09/2016 IMPRESSION: 1. Contracted gallbladder with thickened gallbladder wall measuring up to 11 mm. Cholecystitis cannot be excluded and clinical correlation recommended. 2. Complex focus seen adjacent to the spleen of unclear etiology. If indicated CT could be performed for further assessment. 3. Small right upper pole hypoechoic mass within the right renal pelvis which may represent a complex cyst but solid renal mass cannot be excluded. This lesion also could be assessed with CT. 4. Small bilateral pleural effusions and moderate ascites. Dictated by: Rainer BAUTISTA Interpreted: Geri Mcbride MD on 08/09/2016 at 16:03 Right foot magnetic resonance imaging without contrast performed 08/09/2016 - personally reviewed imaging. IMPRESSION: 1. Extensive soft tissue edema of the right mid foot and forefoot without a drainable abscess/fluid collection is suspicious for cellulitis. 2. No convincing findings of osteomyelitis are identified. However, without intravenous contrast, evaluation for subtle osteomyelitis is limited. 3. Soft tissue mass underlying the plantar surface of the distal phalanx of the great toe is nonspecific and may represent a small neuroma. Granulation tissue from a retained foreign body could also have this appearance. Contrast enhanced MRI of the forefoot is recommended for better evaluation. 4. Mild to moderate tibialis anterior and peroneus longus tendinopathy. 5. Mild to moderate degenerative changes involving the midfoot and forefoot joints. Dictated by: Adelso Reinoso M.D. on 08/09/2016 at 15:22 Venous duplex ultrasound right lower extremity performed 08/07/2016 IMPRESSION: No deep venous thrombosis identified within the right lower extremity. Dictated by: Rainer BAUTISTA Interpreted: Meena Turner MD on 08/07/2016 at 16: 32 X-ray right foot complete, 3 views, performed 08/07/16 IMPRESSION: 1. Diffuse osteopenia and bony osteolysis involving the first metatarsal head suspicious for osteomyelitis. 2. Osteoarthritic changes. Dictated by: Rainer BAUTISTA Interpreted: Meena Turner MD on 08/07/2016 at 13: 46 12-lead ECG Sinus rhythm, Rate 81 Right bundle branch block but no acute changes Cardiac Echo Impressions Per Next Gen: Echo (EF 0.55 (55%)) - 01/25/2016 Echo (EF 0.58 (58%)) - 07/2015 Gil MPI (Normal EF, Inferior Scar vs Gut Artifact) - 01/25/2016 Complete echocardiogram performed on 08/07/2016 Interpretation Summary 1) Mild-moderate concentric left ventricular hypertrophy with normal size, normal wall motion, and normal systolic function (EF 60-65%). 2) Mild to moderately dilated right ventricle with moderately reduced function. 3) Severe right atrial enlargement with inter-atrial septum bowing to the left, suggestive of volume overload. 4) Severe functional tricuspid regurgitation present. 5) Elevated right sided filling pressures based on IVC assessment. 6) High normal pulmonary artery pressures, estimated systolic pulmonary pressure of 34mmHg. 7) No prior echo available for comparison. Findings consistent with right ventricular heart failure. Plan Impression Impression #1 acute on chronic kidney injury secondary to drug-induced which is resolving #2 hypertension with hypertensive heart disease and hypertensive nephrosclerosis, Recommendation was to continue him on his current medical therapy and continue to monitor his intake, I will put, blood pressures, and lab. Ken Mullins DO Aug 11, 2016 13:54
--- NOTE | 2016-08-11 14:39 | NUR ---
Social Work: Continued Discharge Planning D: Pt discussed in am rounds. Pt is not medically stable for discharge. Pt was able to ambulate 60 feet with PT and completed 7 stairs. PT recommendation is still for SNF however pt does not qualify under standards. METAL DRAWER discussed barriers to SNF discharge with MD who agrees pt is appropriate for HH. F2F signed. METAL DRAWER met with pt at bedside. METAL DRAWER reviewed PT recommendation for SNF and pt's insurance. Pt really wishes to go home and states. Pt lives with [place] daughter, in [place]. HH CHOICE LIST PROVIDED. Pt has no preference for HH companies. Pt requested METAL DRAWER speak with pt's daughter about her preference. METAL DRAWER spoke with pt's daughter via telephone. She has no preference and is confident in discharge to home with HH. She states that she is there 04/12 and can provide assistance to the pt. Referral made to [facility] with [facility], per vendor calendar. Access provided A: Pt who will require HH at discharge for RN and PT. P: Anticipate discharge home with [facility] for RN, PT; METAL DRAWER to continue to follow. MARY ELLEN Duque
--- NOTE | 2016-08-11 15:07 | PCM.PNMED ---
Subjective Date of Service Aug 11, 2016 Subjective Patient states he is doing well today, feels better and better every day he has been here. He participated in physical therapy and was able to ambulate from bed to bedside chair with assist. He denies being in any pain, shortness of breath, chest pain, lightheadedness, dizziness, increased abdominal girth, worsening swelling in his arms, hands, feet or legs. Exam Vital Signs Vital Sign - Last Date Time Temp Pulse Resp B/P Pulse Ox O2 Delivery O2 Flow Rate FiO2 08/11/16 12:33 36.7 61 18 150/72 98 Room Air 08/10/16 03:01 2.00 97 Intake and Output 08/10/16 08/10/16 08/11/16 Cumulative From/Thru 15:00 23:00 07:00 08/06/16 22:38 - 08/11/16 06:24 Intake Total 730 ml 200 ml 7341 ml Output Total 1775 ml 1150 ml 5050 ml Balance -1045 ml -950 ml 2291 ml Intake Oral 600 ml 100 ml 3260 ml IV Total 130 ml 100 ml 4081 ml Output Urine Total 1775 ml 1150 ml 5050 ml # Voids 7 # Bowel Movements 1 Exam General: Oriented X3, Cooperative, No Acute Distress. Head: Atraumatic. External ears normal. Eyes: PERRLA, EOMI. Anicteric sclerae. Conjunctiva pink. Mouth: Mouth Normal, Mucous Membranes Moist/[place] Neck: Neck supple with full range of motion. No Thyromegaly. JVD improved Chest & Lungs: Clear to auscultation bilaterally with no crackles, wheezes, or rhonchi. Normal respiratory effort without use of accessory muscles Cardiovascular: Regular Rate/Rhythm, Normal S1, Normal S2, faint systolic murmur. Abdomen: Mild distention, Non-tender, No masses, Normoactive bowel tones. Left leg: mild +1 pitting edema and purple discoloration consistent with venous insufficiency. Otherwise normal exam. Right leg: moderate +2 pitting edema from about 8 cm below the knee down to the foot with pedal edema. There is appreciable wrinkling, and tissue is less taut than yesterday, discoloration has continued to recede from line of demarcation traced out before admission. Leg no longer tender Neurological: Grossly Neurologically Intact, Cranial Nerves 2-12 Intact, Normal Speech (no slurring appreciated). Psych: Normal mood and affect. IVs and Medications Medications Reviewed: Medications were reviewed in detail Lab and Diagnostics Result Diagram: 08/11/16 0245 08/11/16 0245 Microbiology PASTURELLA MULTOCIDA grown from blood cultures 2 X-Rays, CTs and MRIs Abdominal ultrasound performed 08/09/2016 IMPRESSION: 1. Contracted gallbladder with thickened gallbladder wall measuring up to 11 mm. Cholecystitis cannot be excluded and clinical correlation recommended. 2. Complex focus seen adjacent to the spleen of unclear etiology. If indicated CT could be performed for further assessment. 3. Small right upper pole hypoechoic mass within the right renal pelvis which may represent a complex cyst but solid renal mass cannot be excluded. This lesion also could be assessed with CT. 4. Small bilateral pleural effusions and moderate ascites. Dictated by: Rainer BAUTISTA Interpreted: Geri Mcbride MD on 08/09/2016 at 16:03 Right foot magnetic resonance imaging without contrast performed 08/09/2016 - personally reviewed imaging. IMPRESSION: 1. Extensive soft tissue edema of the right mid foot and forefoot without a drainable abscess/fluid collection is suspicious for cellulitis. 2. No convincing findings of osteomyelitis are identified. However, without intravenous contrast, evaluation for subtle osteomyelitis is limited. 3. Soft tissue mass underlying the plantar surface of the distal phalanx of the great toe is nonspecific and may represent a small neuroma. Granulation tissue from a retained foreign body could also have this appearance. Contrast enhanced MRI of the forefoot is recommended for better evaluation. 4. Mild to moderate tibialis anterior and peroneus longus tendinopathy. 5. Mild to moderate degenerative changes involving the midfoot and forefoot joints. Dictated by: Adelso Reinoso M.D. on 08/09/2016 at 15:22 Venous duplex ultrasound right lower extremity performed 08/07/2016 IMPRESSION: No deep venous thrombosis identified within the right lower extremity. Dictated by: Rainer BAUTISTA Interpreted: Meena Turner MD on 08/07/2016 at 16: 32 X-ray right foot complete, 3 views, performed 08/07/16 IMPRESSION: 1. Diffuse osteopenia and bony osteolysis involving the first metatarsal head suspicious for osteomyelitis. 2. Osteoarthritic changes. Dictated by: Rainer BAUTISTA Interpreted: Meena Turner MD on 08/07/2016 at 13: 46 12-lead ECG Sinus rhythm, Rate 81 Right bundle branch block but no acute changes Cardiac Echo Impressions Per Next Gen: Echo (EF 0.55 (55%)) - 01/25/2016 Echo (EF 0.58 (58%)) - 07/2015 Gil MPI (Normal EF, Inferior Scar vs Gut Artifact) - 01/25/2016 Complete echocardiogram performed on 08/07/2016 Interpretation Summary 1) Mild-moderate concentric left ventricular hypertrophy with normal size, normal wall motion, and normal systolic function (EF 60-65%). 2) Mild to moderately dilated right ventricle with moderately reduced function. 3) Severe right atrial enlargement with inter-atrial septum bowing to the left, suggestive of volume overload. 4) Severe functional tricuspid regurgitation present. 5) Elevated right sided filling pressures based on IVC assessment. 6) High normal pulmonary artery pressures, estimated systolic pulmonary pressure of 34mmHg. 7) No prior echo available for comparison. Findings consistent with right ventricular heart failure. Assessment & Plan 86 year old male with a history of chronic afib on warfarin, hypertension, coronary artery disease, and congestive heart failure who presents to the ED with increasing redness and swelling of his right leg that began prior to arrival. hospital day 5 1. Acute Pasturella multocida bacteremia, present on admission, active -2 out of 2 blood cultures positive for Pasturella multocida. -Sensitive to current antibiotics -Substantial increase in procalcitonin on hospital day 2, has continued to decrease -Most likely source is cellulitis of right lower extremity -Infectious disease following. 2.Acute cellulitis of the right lower extremity 2/2 acute ingrown toenail with superimposed cat scratch disease. Present on admission. Active. - Upon admission patient did not qualify for sepsis under SIRS criteria; however according to infectious disease the patient may have met SIRS criteria secondary to his episode of hypotension with increasing creatinine suggestive of organ injury. - Patient received Meropenem+Vanco+Clindamycin in the ED. - Blood culture positive as above. - Infectious diseases consultation: IV Unasyn every 12 hours. day 5. Discontinue oral doxycycline MRSA screen negative, Streptozyme negative, ultrasound right lower extremity negative for DVT MRI w/o Contrast: Substantial soft tissue inflammation. No convincing findings of osteomyelitis. No abscess. -Imaging personally reviewed Discharge recommendations: Augmentin 875mg by mouth twice a day for up to additional week of therapy, received 2 g of IV ceftriaxone prior to discharge. 3. Acute kidney injury. Present on admission. improving. - Serum creatinine nearly tripled from admission during hospital stay, secondary to drug-induced injury plus hypotension. Creatinine trending down today. - Nephrology following Abdominal ultrasound: Moderate ascites, small bilateral pleural effusions, right renal pelvis mass, "complex focus" adjacent to spleen of unclear etiology. Thickened gallbladder wall. -Imaging personally reviewed Discontinue Protonix. Continue 40 mg Furosemide IV twice a day Allopurinol 100mg Daily. 4. Hyperuricemia, present on admission, chronicity unknown, active - Patient's uric acid level was found to be elevated, may be a component of gouty crystal accumulation to right lower extremity pathology - Recommendation per nephrology is to begin 100 mg daily of allopurinol. - Follow-up as an outpatient 5. Chronic iron deficiency, present on admission, treatment initiated -Iron studies were found to have low serum iron, low total iron binding capacity , and low percent saturation. -Begin oral iron supplementation 6. Acute hypotension, not present on admission, resolved. -Patient's blood pressure dropped overnight first day hospital, has remained low but stable, continues to receive furosemide and maintain blood pressure. -Patient remained asymptomatic. . -EKG remained sinus rhythm. -Lactic acid was normal. -Other vitals signs remained normal, no signs of shock. 7. Diastolic congestive heart failure exacerbation, acute. Present on admission. Active. - Patient reports increasing LE edema, SOB, and dry cough. No sputum production. Small JVD noted on exam. - Pro-BNP of 3664. - Complete echo: Findings consistent with right ventricular heart failure, severe functional tricuspid regurgitation. - Will need to monitor strict I/O and daily weight. - Resume home Spironolactone. - Consider switching home Lisinopril to Losartan given chronic dry cough once BP medications are restarted. 8. Elevated Tropnonin. Present on admission. resolving. - Likely due to elevated renal function. Currently remaining stable at 0.063 - Normal EKG on admission, EKG was interpreted as NSR. Monitor Telemetry. 9. Chronic atrial fibrillation on chronic anticoagulation. Stable. - Normal sinus rhythm and rate on admission. - INR is therapeutic (2.13). Continue to monitor INR. - Continue to hold Metoprolol secondary to bardycardia and hypotension - Will continue Warfarin. Dosing per pharmacy. - Monitor Telemetry. - Follow up with cardiology as outpatient for Event Monitor. 10. Hypertension, chronic, stable. - START Metoprolol XL 25mg Daily. - Continue home Spironolactone. - Holding Lisinopril at this time due to kidney injury. - Continue to monitor. 11. History of CAD, presume stable. - Patient is not on ASA or statin. - Lipid panel was unremarkable. - hyperuricemia treatment as above. 12. Chronic urinary retention, (currently incontinent) - Continue Doxazosin resumed. 13. Depression, chronic. - Continue home fluoxetine CODE STATUS: DNR/DNI per the patient. - Acetaminophen and Dilaudid as needed for pain - Bowel regimen as needed - Antiemetic as needed Disposition: Patient likely to continue to require IV antibiotics 1 more night due to severity of disease and specialist consultation. Likely discharge home if no further complications. Physical Therapy recommendation is for SNF. But patient would prefer to be discharged home with home PT if possible. Discussed the case in depth with infectious disease (Dr. Bishop) and nephrology (Dr. Mullins). Pain Evaluation: Adequate Pain Control GI Prophylaxis: H2 luan VTE Prophylaxis: Theraputic Anticoag with Warfarin Resuscitation Status: DNR/DNI:Do Not Resuscitate/Intubate Time spent 40 minutes Attending Statement The patient was seen and examined together with Dr. Rivers on 08/11/16 and I have added additional information to the note above. Tyrese Rivers DO Aug 11, 2016 14:19 Laverne Talamantes DO Aug 12, 2016 12:43 Tyrese Rivers DO Aug 11, 2016 2:19 pm
[2016-08-11] MEDS: MeTOProlol XL 25 mg ER24 Tablet PO SCH (17:24)
--- NOTE | 2016-08-11 17:36 | NUR ---
Shift Note Pt up with PT today. Was able to ambulate approximately 60 feet. Pt states he woke very hungry today with a good appetite. States that the flank pain that he has had for past few days has dissipated and no longer is bothering him. 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
[2016-08-11 19:40] VITALS: BP 132/73; PULSE 66; RESP 18; O2SAT 97
[2016-08-12 02:27] VITALS: BP 115/65; PULSE 49; RESP 16; O2SAT 97
[2016-08-12 02:56] LABS: BASOPHILS % (AUTO) 0.4 % (0-3); EOSINOPHILS % (AUTO) 2.4 % (0-5); MONOCYTES % (AUTO) 9.6 % (4-12); Mean Corpuscular Hemoglobin 31.4 pg (27.0-35.0); NEUTROPHILS % (AUTO) 62.2 % (40-74); Platelet Count 131 bil/L (150-400)
[2016-08-12 03:07] LABS: INR 1.54 ratio
--- NOTE | 2016-08-12 06:04 | NUR ---
Uneventful shift: Vitals stable- pt denies any pain. Sp02 90s on RA. Redness to Right LE improving. Pt states he is intermittently "restless" overnight. Up to chair to read paper for a few hours. sleeping intermittently.
[2016-08-12 08:53] VITALS: BP 114/74; PULSE 54; RESP 16; O2SAT 96
[2016-08-12] MEDS: Ampicillin-Sulbactam Inj 3,000 MG in 0.9% Sodium Chloride 100 ML IV SCH (08:56)
[2016-08-12] MEDS: Furosemide 10 mg/mL 4 mL Inj IVPUSH SCH (08:57)
[2016-08-12] MEDS: MeTOProlol XL 25 mg ER24 Tablet PO SCH (08:57)
--- NOTE | 2016-08-12 11:14 | NUR ---
Social Work: Discharge Data & Assessment: Janitorial Tech met with pt at bedside. Patient anticipating going home with daughter and HH. Patient was referred [facility], but patient does not have a PCP. Pt has no preference for a PCP and is in agreement with being referred to residency clinic. UR specialist will schedule an appointment at the Residency clinic for patient's new PCP and will call patient and notify him of time and date of PCP appointment. Patient's daughter will provide / care and assistance to the pt. Patient discharging with [facility] and Access provided. Plan: Anticipate discharge home with [facility] for RN, PT; OB NURSE to continue to follow. Patient transporting home via POV. Jessica Patel LMSW, ACM
--- NOTE | 2016-08-12 11:54 | NUR ---
[facility] SHERRY signed
[2016-08-12] MEDS ORDERED: cefTRIAXone Inj 2,000 MG in Dextrose 5% Minibag Plus 50 ML IV ONE (12:05)
[2016-08-12 12:16] VITALS: BP 120/62; PULSE 52; RESP 18; O2SAT 98
[2016-08-12] MEDS ORDERED: ZYL100 PO (12:43)
[2016-08-12] MEDS ORDERED: METO25TA99 PO (12:43)
[2016-08-12] MEDS ORDERED: FERR-74 PO (12:43)
[2016-08-12] MEDS ORDERED: WARF2TAB PO (12:43)
[2016-08-12] MEDS ORDERED: AMOX-366 PO (12:43)
--- NOTE | 2016-08-12 13:18 | PCM.PNNEPH ---
Subjective Date of Service Aug 12, 2016 Subjective The patient is doing better overall. His kidney function continued to improve. Patient likely to be discharged home today. Exam Vital Signs Vital Sign - Last Date Time Temp Pulse Resp B/P Pulse Ox O2 Delivery O2 Flow Rate FiO2 08/12/16 12:16 36.6 52 18 120/62 98 Room Air 08/10/16 03:01 2.00 97 Intake and Output 08/11/16 08/11/16 08/12/16 Cumulative From/Thru 15:00 23:00 07:00 08/06/16 22:38 - 08/12/16 06:15 Intake Total 1060 ml 500 ml 8901 ml Output Total 2150 ml 2000 ml 9200 ml Balance -1090 ml -1500 ml -299 ml Intake Oral 960 ml 400 ml 4620 ml IV Total 100 ml 100 ml 4281 ml Output Urine Total 2150 ml 2000 ml 9200 ml # Voids 11 18 # Bowel Movements 1 Exam GENERAL: The patient in no apparent distress, and alert and oriented x3. HEENT: Head is normocephalic and atraumatic. Extraocular muscles are intact. Pupils are equal, round, and reactive to light and accommodation. Nares appeared normal. Mouth is well hydrated and without lesions. Mucous membranes are moist. Posterior pharynx clear of any exudate or lesions. NECK: Supple, no elevation of JVD, No carotid bruits. No lymphadenopathy or thyromegaly. LUNGS: Clear to auscultation, equal breath sounds bilaterally, no wheezing, no rhonchi no rales. HEART: Normal S1/S2, Regular rate and rhythm. ABDOMEN: Soft, nontender, and nondistended. Positive bowel sounds. No hepatosplenomegaly was noted. EXTREMITIES: 1+ edema on the right lower extremity, chronic skin changes noted on both feet. NEUROLOGIC: The patient is oriented to person, place and time. Strength and sensation are grossly intact. SKIN: No ulceration or induration present. Lab and Diagnostics Result Diagram: 08/12/16 0235 08/12/16 0235 Microbiology PASTURELLA MULTOCIDA grown from blood cultures 2 X-Rays, CTs and MRIs Abdominal ultrasound performed 08/09/2016 IMPRESSION: 1. Contracted gallbladder with thickened gallbladder wall measuring up to 11 mm. Cholecystitis cannot be excluded and clinical correlation recommended. 2. Complex focus seen adjacent to the spleen of unclear etiology. If indicated CT could be performed for further assessment. 3. Small right upper pole hypoechoic mass within the right renal pelvis which may represent a complex cyst but solid renal mass cannot be excluded. This lesion also could be assessed with CT. 4. Small bilateral pleural effusions and moderate ascites. Dictated by: Rainer BAUTISTA Interpreted: Geri Mcbride MD on 08/09/2016 at 16:03 Right foot magnetic resonance imaging without contrast performed 08/09/2016 - personally reviewed imaging. IMPRESSION: 1. Extensive soft tissue edema of the right mid foot and forefoot without a drainable abscess/fluid collection is suspicious for cellulitis. 2. No convincing findings of osteomyelitis are identified. However, without intravenous contrast, evaluation for subtle osteomyelitis is limited. 3. Soft tissue mass underlying the plantar surface of the distal phalanx of the great toe is nonspecific and may represent a small neuroma. Granulation tissue from a retained foreign body could also have this appearance. Contrast enhanced MRI of the forefoot is recommended for better evaluation. 4. Mild to moderate tibialis anterior and peroneus longus tendinopathy. 5. Mild to moderate degenerative changes involving the midfoot and forefoot joints. Dictated by: Adelso Reinoso M.D. on 08/09/2016 at 15:22 Venous duplex ultrasound right lower extremity performed 08/07/2016 IMPRESSION: No deep venous thrombosis identified within the right lower extremity. Dictated by: Rainer BAUTISTA Interpreted: Meena Turner MD on 08/07/2016 at 16: 32 X-ray right foot complete, 3 views, performed 08/07/16 IMPRESSION: 1. Diffuse osteopenia and bony osteolysis involving the first metatarsal head suspicious for osteomyelitis. 2. Osteoarthritic changes. Dictated by: Rainer BAUTISTA Interpreted: Meena Turner MD on 08/07/2016 at 13: 46 12-lead ECG Sinus rhythm, Rate 81 Right bundle branch block but no acute changes Cardiac Echo Impressions Per [facility]: Echo (EF 0.55 (55%)) - 01/25/2016 Echo (EF 0.58 (58%)) - 07/2015 [facility] (Normal EF, Inferior Scar vs Gut Artifact) - 01/25/2016 Complete echocardiogram performed on 08/07/2016 Interpretation Summary 1) Mild-moderate concentric left ventricular hypertrophy with normal size, normal wall motion, and normal systolic function (EF 60-65%). 2) Mild to moderately dilated right ventricle with moderately reduced function. 3) Severe right atrial enlargement with inter-atrial septum bowing to the left, suggestive of volume overload. 4) Severe functional tricuspid regurgitation present. 5) Elevated right sided filling pressures based on IVC assessment. 6) High normal pulmonary artery pressures, estimated systolic pulmonary pressure of 34mmHg. 7) No prior echo available for comparison. Findings consistent with right ventricular heart failure. Plan Impression 1. Acute kidney injury secondary to ATN. 2. Right lower extremity cellulitis. 3. Pasturella multocida bacteremia. 4. Hyperuricemia. 5. Chronic diastolic heart failure Plan: Discontinue IV Lasix. Start Lasix 40 mg twice a day. Continue on spironolactone 50 mg daily. Repeat BMP on Sunday. Follow up with renal in 1 week. Per renal standpoint, patient can be discharged. Ana María Escudero MD Aug 12, 2016 13:18 - Upon admission patient did not qualify for sepsis under SIRS criteria; however according to infectious disease the patient may have met SIRS criteria secondary to his episode of hypotension with increasing creatinine suggestive of organ injury. - Patient received Meropenem+Vanco+Clindamycin in the ED. - Blood culture positive as above. - Infectious diseases consultation: IV Unasyn every 12 hours. day 5. Discontinue oral doxycycline MRSA screen negative, Streptozyme negative, ultrasound right lower extremity negative for DVT MRI w/o Contrast: Substantial soft tissue inflammation. No convincing findings of osteomyelitis. No abscess. -Imaging personally reviewed Discharge recommendations: Augmentin 875mg by mouth twice a day for up to additional week of therapy, received 2 g of IV ceftriaxone prior to discharge. 3. Acute kidney injury. Present on admission. improving. - Serum creatinine nearly tripled from admission during hospital stay, secondary to drug-induced injury plus hypotension. Creatinine trending down today. - Nephrology following Abdominal ultrasound: Moderate ascites, small bilateral pleural effusions, right renal pelvis mass, "complex focus" adjacent to spleen of unclear etiology. Thickened gallbladder wall. -Imaging personally reviewed Discontinue Protonix. Continue 40 mg Furosemide IV twice a day Allopurinol 100mg Daily. 4. Hyperuricemia, present on admission, chronicity unknown, active - Patient's uric acid level was found to be elevated, may be a component of gouty crystal accumulation to right lower extremity pathology - Recommendation per nephrology is to begin 100 mg daily of allopurinol. - Follow-up as an outpatient 5. Chronic iron deficiency, present on admission, treatment initiated -Iron studies were found to have low serum iron, low total iron binding capacity , and low percent saturation. -Begin oral iron supplementation 6. Acute hypotension, not present on admission, resolved. -Patient's blood pressure dropped overnight first day hospital, has remained low but stable, continues to receive furosemide and maintain blood pressure. -Patient remained asymptomatic. . -EKG remained sinus rhythm. -Lactic acid was normal. -Other vitals signs remained normal, no signs of shock. 7. Diastolic congestive heart failure exacerbation, acute. Present on admission. Active. - Patient reports increasing LE edema, SOB, and dry cough. No sputum production. Small JVD noted on exam. - Pro-BNP of 3664. - Complete echo: Findings consistent with right ventricular heart failure, severe functional tricuspid regurgitation. - Will need to monitor strict I/O and daily weight. - Resume home Spironolactone. - Consider switching home Lisinopril to Losartan given chronic dry cough once BP medications are restarted. 8. Elevated Tropnonin. Present on admission. resolving. Ana María Escudero MD Aug 12, 2016 13:18
[2016-08-12] MEDS ORDERED: FURO40TA4 PO (13:43)
--- NOTE | 2016-08-12 13:46 | PCM.DIMED ---
Tyrese Rivers DO 08/12/16 1239: Discharge Instructions Date of Service Aug 12, 2016 Dates of Hospitalization Aug 07, 2016 at 12:42 am Discharge Diagnosis Discharge Diagnosis 1. Acute Pasturella multocida bacteremia 2.Acute cellulitis of the right lower extremity 3. Acute kidney injury 4. Hyperuricemia 5. Chronic iron deficiency 6. Acute hypotension - Resolved 7. Diastolic congestive heart failure exacerbation 8. Elevated Tropnonin. 9. Chronic atrial fibrillation on chronic anticoagulation 10. Hypertension, chronic 11. History of CAD 12. Chronic urinary retention 13. Depression, chronic. 14. Hypertensive nephrosclerosis Medication Instructions Take 2 mg of warfarin every afternoon at 5 PM by mouth. Make sure to follow-up with INR clinic for dose adjustments. Continue taking allopurinol 100 mg a day by mouth. Start metoprolol succinate extended release 25 mg by mouth every morning Begin taking ferrous sulfate 325 mg by mouth 3 times a day with meals. Start taking Augmentin 875 125 mg 1 pill by mouth, twice a day, until Rx is gone. Change your furosemide dose to 40 mg by mouth twice a day. STOP taking Lisinopril until seen by nephrology. Diet Heart Healthy, Renal Diet Activity Home Health Phyical Therapy Call your provider Fever or Chills, Shortness of breath, Bleeding, Chest pain, Vomitting, Excessive diarrhea, Weakness (unilateral), Other Patient Instructions You will be contacted with a date and time for a follow up appointment with a primary care physician, most likely from the [facility]. You are to follow up within one week with Nephrology. You will be contacted with scheduling for this as well. Please follow up with the [facility] (AKA, [facility]R clinic), to evaluate the dose of your warfarin. You are of new medications that can enhance the effects of the previous doses you were taking. [facility] will be contacting you and visiting you in the coming week. Please expect calls from them. If you have any chest pain, shortness of breath, lightheadedness, dizziness, worsening swelling in her legs and feet, recurrence of redness, pain, swelling in your right foot, or occurrence of any new infection please do not hesitate to contact your doctor, or go the emergency department. Please watch your weight, as an abrupt increase in indicate worsening kidney or heart disease. If you have increase more than 4 pounds in 1 day, or 9 pounds within 1 week please contact your primary care. If you develop shortness of breath, or difficulty breathing when lying flat, please go to the emergency department. Please have blood drawn 08/14/2016: Basic metabolic panel. Follow-up Provider: [facility] Follow-up with PCP in: 1 week Provider: Ana María Escudero MD Follow-up in: Other (Within one week.) Laverne Talamantes DO 08/12/16 1811: Discharge Instructions Attending's Statement The patient was seen and examined together with Dr. Rivers on 08/12/2016 and I agree with the history, exam and plan as outlined in the note above. Tyrese Rivers DO Aug 12, 2016 12:39 Laverne Talamantes DO Aug 12, 2016 18:11
--- NOTE | 2016-08-12 15:07 | PCM.DC.MED ---
Discharge Summary Date of Service Aug 12, 2016 Dates of Hospitalization Date of Hospital Admission Aug 07, 2016 at 12:42 am Date of Discharge: Aug 12, 2016 Providers: Admitting Physician: Thomas Nelson MD Primary Care Physician: Nopcp Attending Physician: Thomas Nelson MD Diagnosis at Time of Discharge Diagnosis at Time of Discharge 1. Acute Pasturella multocida bacteremia 2.Acute cellulitis of the right lower extremity 3. Acute kidney injury 4. Hyperuricemia 5. Chronic iron deficiency 6. Acute hypotension - Resolved 7. Diastolic congestive heart failure exacerbation 8. Elevated Tropnonin. 9. Chronic atrial fibrillation on chronic anticoagulation 10. Hypertension, chronic 11. History of CAD 12. Chronic urinary retention 13. Depression, chronic. 14. Hypertensive nephrosclerosis Consultations Infectious disease Nephrology Procedures XRay, CTs & MRIs Abdominal ultrasound performed 08/09/2016 IMPRESSION: 1. Contracted gallbladder with thickened gallbladder wall measuring up to 11 mm. Cholecystitis cannot be excluded and clinical correlation recommended. 2. Complex focus seen adjacent to the spleen of unclear etiology. If indicated CT could be performed for further assessment. 3. Small right upper pole hypoechoic mass within the right renal pelvis which may represent a complex cyst but solid renal mass cannot be excluded. This lesion also could be assessed with CT. 4. Small bilateral pleural effusions and moderate ascites. Dictated by: [facility]ainer [facility] Interpreted: Geri Mcbride MD on 08/09/2016 at 16:03 Right foot magnetic resonance imaging without contrast performed 08/09/2016 - personally reviewed imaging. IMPRESSION: 1. Extensive soft tissue edema of the right mid foot and forefoot without a drainable abscess/fluid collection is suspicious for cellulitis. 2. No convincing findings of osteomyelitis are identified. However, without intravenous contrast, evaluation for subtle osteomyelitis is limited. 3. Soft tissue mass underlying the plantar surface of the distal phalanx of the great toe is nonspecific and may represent a small neuroma. Granulation tissue from a retained foreign body could also have this appearance. Contrast enhanced MRI of the forefoot is recommended for better evaluation. 4. Mild to moderate tibialis anterior and peroneus longus tendinopathy. 5. Mild to moderate degenerative changes involving the midfoot and forefoot joints. Dictated by: Adelso Reinoso M.D. on 08/09/2016 at 15:22 Venous duplex ultrasound right lower extremity performed 08/07/2016 IMPRESSION: No deep venous thrombosis identified within the right lower extremity. Dictated by: Rainer BAUTISTA Interpreted: Meena Turner MD on 08/07/2016 at 16: 32 X-ray right foot complete, 3 views, performed 08/07/16 IMPRESSION: 1. Diffuse osteopenia and bony osteolysis involving the first metatarsal head suspicious for osteomyelitis. 2. Osteoarthritic changes. Dictated by: Rainer BAUTISTA Interpreted: Meena Turner MD on 08/07/2016 at 13: 46 ECG 12 Lead Sinus rhythm, Rate 81 Right bundle branch block but no acute changes Cardiac Echo Impression Per Next Gen: Echo (EF 0.55 (55%)) - 01/25/2016 Echo (EF 0.58 (58%)) - 07/2015 Gil MPI (Normal EF, Inferior Scar vs Gut Artifact) - 01/25/2016 Complete echocardiogram performed on 08/07/2016 Interpretation Summary 1) Mild-moderate concentric left ventricular hypertrophy with normal size, normal wall motion, and normal systolic function (EF 60-65%). 2) Mild to moderately dilated right ventricle with moderately reduced function. 3) Severe right atrial enlargement with inter-atrial septum bowing to the left, suggestive of volume overload. 4) Severe functional tricuspid regurgitation present. 5) Elevated right sided filling pressures based on IVC assessment. 6) High normal pulmonary artery pressures, estimated systolic pulmonary pressure of 34mmHg. 7) No prior echo available for comparison. Findings consistent with right ventricular heart failure. Brief History From admission note: "Mr. Parrish Benitez is an 86 year old male with a history of chronic chronic afib on warfarin, hypertension, coronary artery disease, and congestive heart failure who presents to the ED with increasing redness and swelling of his right leg that began prior to arrival. The patient reports that his leg's swelling has been worse than usual several days ago, causing him to double his dose of furosemide and spironolactone. Tonight the patient complained to his daughter that his right big toe and foot are causing him pain. She noticed that his right leg was swollen and red. His daughter states that the patient was scratched by her cat a week ago and she is concerned that this may have caused his infection. However, he also has an ingrown toenail of his right great toe. She gave him a dose of Ibuprofen prior to arrival, which made him very nauseous and vomited once. He admits to increasing shortness of breath, worsening dry cough, chills, urinary frequency, and decreased PO intake over the past few days. He denies abdominal pain, fever, chest pain, or paroxysmal nocturnal dyspnea. He sleeps with one pillow everyday and does not need to use O2. He denies a history of diabetes mellitus and has never had similar symptoms in the past. His daughter reports the last time he was in the hospital was probably 7 years ago for a knee surgery. No recent cardiac workups, but he saw Dr. Taveras in 05/2016 and plans to have an event monitor done soon. In the ED, patient had temp of 37.5, pulse 82, RR 28, BP 153/70, Pulse ox 99% at RA. WBC normal but elevated Neutrophils of 88. CMP normal except for BUN 33 and Cr. 1.84. Lactic acid 1.7 and procalcitonin 0.07. Pro-BNP 3664 and elevated trop of 0.055. INR 1.67. EKG showed sinus rhythm with rate of 81 and RBBB but no acute changes. CXR indicated cardiomegaly but no other sign of CHF." Hospital Course 86 year old male with a history of chronic afib on warfarin, hypertension, coronary artery disease, and congestive heart failure who presents to the ED with increasing redness and swelling of his right leg that began prior to arrival. On admission he was started on broad-spectrum antibiotics, however once cultures resulted for pasteurella multocida he was kept exclusively on IV Unasyn renal dosed. Additionally DVT was ruled out, as was liver cirrhosis. Nephrology consult on the case along with infectious disease. Nephrology was able to diurese the patient with IV Lasix which she responded well to and serum creatinine improved throughout hospital stay. Patient's pro-calcitonin, and leukocyte count improved throughout his stay with IV antibiotics. He was discharged home after receiving an additional 2 g of ceftriaxone on top of his daily Unasyn, and sent home with 1 week's worth of Augmentin twice a day. He was discharged to home with home health on hospital day 6. Due to his kidney injuries, his lisinopril was stopped and placed on metoprolol which he tolerated and blood pressure remained at goal. He does not have a primary care doctor and was going to be called for scheduling on August 14. He is to follow-up at the [facility] clinic, nephrology, and with primary care. 1. Acute Pasturella multocida bacteremia, present on admission, active -2 out of 2 blood cultures positive for Pasturella multocida. -Sensitive to prescribe antibiotic regimen. -Substantial increase in procalcitonin on hospital day 2, has continued to decrease -Most likely source is cellulitis of right lower extremity -Infectious disease followed the recommendations from the case. 2. Acute cellulitis of the right lower extremity 2/2 acute ingrown toenail with superimposed cat scratch disease. Present on admission. Active. - Upon admission patient did not qualify for sepsis under SIRS criteria; however according to infectious disease the patient may have met SIRS criteria secondary to his episode of hypotension with increasing creatinine suggestive of organ injury. - Patient received Meropenem+Vanco+Clindamycin in the ED. - Blood culture positive as above. - Infectious diseases consultation: IV Unasyn every 12 hours: Received 5.5 days of Unasyn IV. Discontinued oral doxycycline MRSA screen negative, Streptozyme negative, ultrasound right lower extremity negative for DVT MRI w/o Contrast: Substantial soft tissue inflammation. No convincing findings of osteomyelitis. No abscess. -Imaging personally reviewed Discharge antibiotics: Augmentin 875mg by mouth twice a day for up to additional week of therapy, received 2 g of IV ceftriaxone prior to discharge. 3. Acute kidney injury. Present on admission. improved. - Serum creatinine nearly tripled from admission during hospital stay, secondary to drug-induced injury plus hypotension. Creatinine trending down today. - Nephrology following Abdominal ultrasound: Moderate ascites, small bilateral pleural effusions, right renal pelvis mass, "complex focus" adjacent to spleen of unclear etiology. Thickened gallbladder wall. -Imaging personally reviewed Discontinue Protonix. Continue 40 mg Furosemide PO twice a day Allopurinol 100mg Daily. Follow-up as outpatient for renal mass findings BMP scheduled for 08/14/2016 4. Hyperuricemia, present on admission, chronicity unknown, active - Patient's uric acid level was found to be elevated, may be a component of gouty crystal accumulation to right lower extremity pathology - Recommendation per nephrology is to begin 100 mg daily of allopurinol. - Follow-up as an outpatient 5. Chronic iron deficiency, present on admission, treatment initiated -Iron studies were found to have low serum iron, low total iron binding capacity , and low percent saturation. -Begin oral iron supplementation 6. Acute hypotension, not present on admission, resolved. -Patient's blood pressure dropped overnight first day hospital, has remained low but stable, continues to receive furosemide and maintain blood pressure. -Patient remained asymptomatic. . -EKG remained sinus rhythm. -Lactic acid was normal. -Other vitals signs remained normal, no signs of shock. 7. Diastolic congestive heart failure exacerbation, acute. Present on admission. Active. - Patient reports increasing LE edema, SOB, and dry cough. No sputum production. Small JVD noted on exam. - Pro-BNP of 3664. - Complete echo: Findings consistent with right ventricular heart failure, severe functional tricuspid regurgitation. - Strictly monitored ins and outs throughout stay - Resume home Spironolactone. - Lisinopril stopped secondary to chronic dry cough, and kidney injury. Started on 25 mg metoprolol succinate daily. 8. Elevated Tropnonin. Present on admission. resolving. - Likely due to elevated renal function. Currently remaining stable at 0.063 - Normal EKG on admission, EKG was interpreted as NSR. Monitor Telemetry. 9. Chronic atrial fibrillation on chronic anticoagulation. Stable. - Normal sinus rhythm and rate on admission. - INR was therapeutic (2.13). Become subtherapeutic during stay. Restarted on 2 mg every afternoon of warfarin to follow-up at INR clinic - Monitored on Telemetry throughout hospital stay. - Follow up with cardiology as outpatient for Event Monitor. 10. Hypertension, chronic, stable. - START Metoprolol XL 25mg Daily. - Continue home Spironolactone. - Stop Lisinopril at this time due to kidney injury. -Follow-up as outpatient 11. History of CAD, presume stable. - Patient is not on ASA or statin. - Lipid panel was unremarkable. - hyperuricemia treatment as above. 12. Chronic urinary retention, (currently incontinent) - Continue Doxazosin resumed. 13. Depression, chronic. - Continue home fluoxetine Note to primary care: Patient is DNR/DNI. Disposition: Discharge home with home health for physical therapy and ongoing medical maintenance. On day of discharge patient was eager to go home, stated great improvement in subjective symptoms since admission. It was recommended by physical therapy the patient received ongoing physical therapy daily at a assisted facility, however patient requested to be discharged home and have physical therapy provided at his house. [facility]. Discussed the case in depth with nephrology (Dr. Machado) today. Exam Vital Signs (Last) Date Time Temp Pulse Resp B/P Pulse Ox O2 Delivery O2 Flow Rate FiO2 08/12/16 12:16 36.6 52 18 120/62 98 Room Air 08/10/16 03:01 2.00 97 Exam General: Oriented X3, Cooperative, No Acute Distress. Head: Atraumatic. External ears normal. Eyes: PERRLA, EOMI. Anicteric sclerae. Conjunctiva pink. Mouth: Mouth Normal, Mucous Membranes Moist/[place] Neck: Neck supple with full range of motion. No Thyromegaly. JVD improved Chest & Lungs: Clear to auscultation bilaterally with no crackles, wheezes, or rhonchi. Normal respiratory effort without use of accessory muscles Cardiovascular: Regular Rate/Rhythm, Normal S1, Normal S2, faint systolic murmur. Abdomen: Mild distention, Non-tender, No masses, Normoactive bowel tones. Left leg: mild +1 pitting edema and purple discoloration consistent with venous insufficiency. Otherwise normal exam. Right leg: moderate +2 pitting edema from about 8 cm below the knee down to the foot with pedal edema. There is appreciable wrinkling, and tissue continues to be less taut than preceding days, discoloration has continued to recede from line of demarcation traced out before admission. Leg no longer tender Neurological: Grossly Neurologically Intact, Cranial Nerves 2-12 Intact, Normal Speech (no slurring appreciated). Psych: Normal mood and affect. Test 08/06/16 23:02 08/07/16 01:50 08/07/16 03:15 08/08/16 07:23 Erythrocyte Sedimentation Rate 19mm/hr (0-30) Activated Partial Thromboplast Time 30.4sec (22.8-33.0) Phosphorus Level 3.3mg/dL (2.5-4.9) Pro-B-Type Natriuretic Peptide 3664pg/mL (0-486) Lipase 26U/L (13-60) Urine Color Yellow (YELLOW) Urine Appearance Clear (CLEAR,HAZY) Urine pH 6.0 (5.0-8.0) Urine Specific [place] 1.015 (1.003-1.035) Urine Protein Negativemg/dL (NEG,TRACE) Urine Glucose (UA) Negativemg/dL (NEGATIVE) Urine Ketones Negativemg/dL (NEGATIVE) Urine Occult Blood Negative (NEGATIVE) Urine Nitrite Negative (NEGATIVE) Urine Bilirubin Negative (NEGATIVE) Urine Urobilinogen Normalmg/dL (NORMAL) Urine Leukocyte Esterase Negative (NEGATIVE) Urine RBC 0-2/hpf (0-2) Urine WBC 0-5/hpf (0-5) Urine Epithelial Cells Occasional/hpf (NONE-MOD) Urine Crystals None seen (NONE SEEN) Urine Bacteria None/hpf (NONE-FEW) Urine Hyaline Casts None/lpf (NONE) Urine Granular Casts None seen (NONE SEEN) Urine Waxy Casts None seen (NONE SEEN) Urine Red Blood Cell Casts None seen (NONE SEEN) Urine White Blood Cell Casts None seen (NONE SEEN) Urine Mucus None seen (None Seen) Urine Trichomonas None seen (NONE SEEN) Urine Yeast None (NONE SEEN) Urine Culture Reflexed Not indicated Triglycerides Level 46mg/dL (0-149) Cholesterol Level 92mg/dL (100-199) LDL Cholesterol, Calculated 52.800mg/dL (0-99) VLDL Cholesterol 9.200mg/dL HDL Cholesterol 30mg/dL (>39) Cholesterol/HDL Ratio 3.07 (0.0-4.4) Lactic Acid Level 1.1mmol/L (0.4-2.0) Test 08/09/16 03:44 08/09/16 11:35 08/10/16 02:46 08/11/16 02:45 Magnesium Level 2.0mg/dL (1.6-2.6) Troponin T 0.063ug/L (0.0-0.011) Streptozyme 49.5IU/mL (0.0-200.0) Hepatitis A IgM Antibody Negative (Negative) Hepatitis B Surface Antigen Negative (Negative) Hepatitis B Core IgM Antibody Negative (Negative) Hepatitis C Antibody 0.1s/co ratio (0.0-0.9) Hepatitis C Comment Comment (.) Uric Acid 11.4mg/dL (2.6-7.2) Iron Level 18ug/dL (35-150) Total Iron Binding Capacity 205ug/dL (250-450) Percent Iron Saturation 9%sat (15-50) Unsaturated Iron Binding 186.9ug/dL Total Bilirubin 1.3mg/dL (0.0-1.2) Aspartate Amino Transf (AST/SGOT) 31U/L (0-50) Alanine Aminotransferase (ALT/SGPT) 17U/L (0-44) Alkaline Phosphatase 170U/L (25-160) Total Protein 6.7g/dL (6.4-8.4) Procalcitonin 4.24ng/mL (0.00-0.08) Test 08/12/16 02:35 White Blood Count 4.7th/mm3 (3.8-10.1) Red Blood Count 3.28mil/mm3 (4.40-5.80) Hemoglobin 10.3g/dL (13.8-17.2) Hematocrit 30.5% (41.0-50.0) Mean Corpuscular Volume 93.0fL (81-100) Mean Corpuscular Hemoglobin 31.4pg (27.0-35.0) Mean Corpuscular Hemoglobin Concent 33.8% (32.0-37.0) Red Cell Distribution Width 14.7% (12.3-15.4) Platelet Count 131bil/L (150-400) Neutrophils (%) (Auto) 62.2% (40-74) Lymphocytes (%) (Auto) 25.0% (14-46) Monocytes (%) (Auto) 9.6% (4-12) Eosinophils (%) (Auto) 2.4% (0-5) Basophils (%) (Auto) 0.4% (0-3) Prothrombin Time 16.6sec (8.1-12.5) Prothromb Time International Ratio 1.54ratio Sodium Level 138mEq/L (134-144) Potassium Level 5.1mEq/L (3.5-5.2) Chloride Level 100mEq/L (97-108) Carbon Dioxide Level 23mmol/L (18-29) Blood Urea Nitrogen 55mg/dL (8-27) Creatinine 2.53mg/dL (0.76-1.27) Estimat Glomerular Filtration Rate 26mL/min (>59) Glucose Level 90mg/dL (60-99) Calcium Level 9.8mg/dL (8.5-10.1) Microbiology Results PASTURELLA MULTOCIDA grown from blood cultures 2 Discharge Medications Discharge Medications Allopurinol (Allopurinol) 100 Mg Tablet 100 MG PO DAILY Prescribed by: TYRESE MORRIS DO Amoxicillin/Clav K 875-125 mg (Augmentin 875-125 mg) 1 Each Tablet 1 TABLET PO BID Prescribed by: TYRESE MORRIS DO Doxazosin (Cardura) 8 Mg Tablet 8 MG PO HS (Reported) Ferrous Sulfate (Feosol) 325 Mg Tablet 325 MG PO TIDWM Prescribed by: TYRESE MORRIS DO Furosemide (Furosemide) 40 Mg Tablet 40 MG PO BID Prescribed by: TYRESE MORRIS DO Metoprolol Succinate ER (Metoprolol Succinate ER) 25 Mg Tab.er.24h 25 MG PO DAILY Prescribed by: TYRESE MORRIS DO Omeprazole (Omeprazole) 20 Mg Capsule.dr 20 MG PO DAILY (Reported) Spironolactone (Spironolactone) 50 Mg Tablet 50 MG PO QAM (Reported) Warfarin Sodium (Coumadin) 2 Mg Tablet 2 MG PO DAILY@17 Prescribed by: TYRESE MORRIS DO Additional med instructions Take 2 mg of warfarin every afternoon at 5 PM by mouth. Make sure to follow-up with INR clinic for dose adjustments. Continue taking allopurinol 100 mg a day by mouth. Start metoprolol succinate extended release 25 mg by mouth every morning Begin taking ferrous sulfate 325 mg by mouth 3 times a day with meals. Start taking Augmentin 875 125 mg 1 pill by mouth, twice a day, until Rx is gone. Change your furosemide dose to 40 mg by mouth twice a day. STOP taking Lisinopril until seen by nephrology. Followup Plan Discharge Diet: Heart Healthy, Renal Diet Discharge Activity: Home Health Phyical Therapy Patient Instructions You will be contacted with a date and time for a follow up appointment with a primary care physician, most likely from the [facility]. You are to follow up within one week with Nephrology. You will be contacted with scheduling for this as well. Please follow up with the [facility] ([facility], [facility] clinic), to evaluate the dose of your warfarin. You are of new medications that can enhance the effects of the previous doses you were taking. [facility] will be contacting you and visiting you in the coming week. Please expect calls from them. If you have any chest pain, shortness of breath, lightheadedness, dizziness, worsening swelling in her legs and feet, recurrence of redness, pain, swelling in your right foot, or occurrence of any new infection please do not hesitate to contact your doctor, or go the emergency department. Please watch your weight, as an abrupt increase in indicate worsening kidney or heart disease. If you have increase more than 4 pounds in 1 day, or 9 pounds within 1 week please contact your primary care. If you develop shortness of breath, or difficulty breathing when lying flat, please go to the emergency department. Please have blood drawn 08/14/2016: Basic metabolic panel. Follow-up Provider: [facility] Follow-up with PCP in: 1 week Provider: Ana María Escudero MD Follow-up in: Other (Within one week.) Time spent Greater than 35 minutes Attending Statement The patient was seen and examined together with Dr. Rivers on 08/12/16 and I have added additional information to the note above. copies to: Ana María Escudero MD; [facility] Tyrese Rivers DO Aug 12, 2016 15:07 Laverne Talamantes DO Aug 12, 2016 18:16
--- NOTE | 2016-08-12 16:43 | NUR ---
Discharge Pt discharged to home with home health services. Pt to be transported POV by his daughter. Pt's IV's dc'd intact. All belongings were gathered for transport with patient. Discharge instructions, follow up appointments and new medications were reviewed. All patient's questions and his daughter's questions were answered. Both voiced understanding. Pt was escorted to his daughter's car for transport by this RN.
--- NOTE | 2016-08-14 13:47 | NUR ---
Scheduled follow appointment for patient at [facility] on SunAugust 23 check in at 1015AM for 1030AM appointment with Updated BIRD KEEPER and Population Health RN
== END 2016-08-12 16:43 | disposition home health service (06) | DRG 867 ==
LOC: SED 22:31 → PCC 08-07 00:42
PROVIDERS: ADMIT Hospitalist; ATTEND Hospitalist
DX: A28.0 Pasteurellosis (principal); I50.31 Acute diastolic (congestive) heart failure; N17.0 Acute kidney failure with tubular necrosis; R65.21 Severe sepsis with septic shock; L03.115 Cellulitis of right lower limb; I13.0 Hypertensive heart and chronic kidney disease with heart failure and stage 1 through stage 4 chronic kidney disease, or unspecified chronic kidney disease; N18.3 Chronic kidney disease, stage 3 (moderate); I25.10 Atherosclerotic heart disease of native coronary artery without angina pectoris; Z87.891 Personal history of nicotine dependence; I48.2 Chronic atrial fibrillation; Z79.01 Long term (current) use of anticoagulants; I27.2 Other secondary pulmonary hypertension; Z66 Do not resuscitate; F32.9 Major depressive disorder, single episode, unspecified; R33.9 Retention of urine, unspecified; L60.0 Ingrowing nail; I87.2 Venous insufficiency (chronic) (peripheral); I07.1 Rheumatic tricuspid insufficiency; Z96.642 Presence of left artificial hip joint; M17.0 Bilateral primary osteoarthritis of knee; D63.1 Anemia in chronic kidney disease; E79.0 Hyperuricemia without signs of inflammatory arthritis and tophaceous disease; W55.01XA Bitten by cat, initial encounter; Y92.009 Unspecified place in unspecified non-institutional (private) residence as the place of occurrence of the external cause